=== PATIENT | female | born 1990 | race Caucasian/White ===

== ENCOUNTER → 2019-12-07 14:48 | Outpatient (BNVA) | payer BC, SELFPAY | PROVIDERS: PCP Hospitalist; Visit Provider Advanced Practice Midwife | DX: Z30.42 Encounter for surveillance of injectable contraceptive (principal) | CPT/HCPCS: 96372 ==

== ENCOUNTER 2020-01-10 15:00 | Outpatient (RCR) | payer BC, SELFPAY ==
--- NOTE | 2019-12-15 16:18 | MHC.PT.EP ---
[facility] [place] Office [place] Office [place] Office [address] Julio Dorman [address] [phone] F: [phone] F: [phone] F: [phone] F: [phone] Physical Therapy Plan of Care Date of Evaluation: 12/15/19 Date of Surgery: NA Diagnosis: Strain of rectus abdominis muscle Assessment: 29 year female referred for strain of abdominal muscles . Pt is 7.5 months post and present with diastasis recti. Pt also states she has mild uterine prolapse and cystocele. Pt has had 3 children. Her 2nd child is 20 month and 3rd is 7.5 months old. Per pt she has had diastasis recti after her first child (6 years back) and it got worse with her last 2 children. Examination reveals 0/10 pain at rest and 9/10 pain with lifting heavy weights, running, decreased muscle strength of rectus and transverse abdominis, 4 finger separation at 2 inches above belly button and 3 fingers separation at 2 fingers bellow belly button and demonstrated mild deviation in posture. Pt is independent with all BADLS but needs help with IADLS requiring her to lift heavy weights. 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 She is a good candidate for PT based on age, goals, physical impairments and functional limitations. She would benefit from lumbar stabs, abdominal strengthening, B LE strengthening and functional training. Frequency and Duration: The patient will be seen 2/week for 6 weeks Short Term Goals: 1. Pt will have 50% decrease in 2 weeks. 2. Pt will have 2 finger separation below belly button and 3 finger above belly button in 3 weeks. Senior Care Goals: 1. Pt will be able to perform all ADLS without any pain in 5 weeks. 2. Pt will return to PLOF in 6 weeks Treatment Plan: Modalities to reduce pain, spasms and effusion. Manual therapy to restore motion and function. Therapeutic exercise to improve strength and flexibility. Neuromuscular re-education for posture and balance. Therapeutic activities to return to functional activities of daily living. Please sign and return to therapist. Thank you for your referral.
--- NOTE | 2020-02-20 08:49 | MHC.PT.DC ---
[facility] [place] Office [place] Office [place] Office [address] Julio Dorman [address] [phone] F: [phone] F: [phone] F: [phone] F: [phone] Physical Therapy Discharge Report Diagnosis: Strain of rectus abdominis muscle Date of Surgery: NA Date of Evaluation: 12/15/19 Date of Discharge: 02/20/20 Treatments to Date: 7 Cancellations to Date: 0 No Shows to Date: 1 Discharge Status: Improved Function Independent with HEP Discharge Summary: Pt was attending PT regularly and was getting better. However pt has not been able to attend PT over the last one month due to personal issues. Pt was therefore d/c from therapy and was advised to return to therapy when able. Electronically signed by: Lydia Genao DPT Please sign and return to therapist. Thank you for your referral.
== END 2020-02-20 08:50 | disposition other institution (70) ==
LOC: HO.PT 15:00
PROVIDERS: PCP Family Medicine; Visit Provider Hospitalist
DX: S39.011D Strain of muscle, fascia and tendon of abdomen, subsequent encounter (principal)
CPT/HCPCS: 97110; 97161

== ENCOUNTER → 2020-02-28 14:33 | Outpatient (BNVA) | payer BC, SELFPAY | PROVIDERS: PCP Family Medicine; Visit Provider Advanced Practice Midwife | DX: Z30.42 Encounter for surveillance of injectable contraceptive (principal) | CPT/HCPCS: 96372; J1050 ==

== ENCOUNTER 2020-11-12 10:17 | Outpatient (REF) | payer BC, SELFPAY ==
[2020-11-12 13:54] LABS: Hematocrit 40.9 % (37-47); Hemoglobin 13.4 g/dl (12.0-16.0); Mean Corpuscular HGB Conc 32.8 g/dl (31.0-35.0); Mean Corpuscular Hemoglobin 28.5 pg (27.0-33.0); Mean Platelet Volume 12.4 fL (9.4-12.3); Platelet Count 201 X10*3/uL (160-400); Red Cell Distribution Width 12.6 % (11.0-16.0); White Blood Count 6.7 X10*3/uL (4.8-10.8)
[2020-11-12 14:47] LABS: TSH reflex Free T4 1.27 uIU/mL (0.32-4.0)
[2020-11-12 14:53] LABS: Alanine Aminotransferase 13 U/L (0-31); Albumin Level 4.6 g/dL (3.5-5.0); Alkaline Phosphatase 53 U/L (39-117); Anion Gap 12 (12-20); Aspartate Amino Transferase 20 U/L (5-31); Bilirubin Total 0.8 mg/dL (0.0-1.0); Blood Urea Nitrogen 10 mg/dL (9-16); Calcium 9.3 mg/dL (8.4-10.2); Carbon Dioxide 25 mmol/L (22-29); Chloride 109 mmol/L (96-108); Estimated Glomerular Filt Rate > 60; Glucose Fasting 82 mg/dL (60-99); Potassium 4.1 mmol/L (3.3-5.1); Sodium 142 mmol/L (135-145)
== END 2020-11-12 10:18 | disposition home or self-care (01) ==
LOC: HO.WFDLDS 10:17
PROVIDERS: Visit Provider Hospitalist
DX: Z00.00 Encounter for general adult medical examination without abnormal findings (principal)
CPT/HCPCS: 36415; 80053; 84443; 85027

== ENCOUNTER 2020-11-23 12:48 | Outpatient (REF) | payer BC, SELFPAY ==
[2020-11-23 14:23] LABS: Anion Gap 12 (12-20); Blood Urea Nitrogen 9 mg/dL (9-16); Calcium 9.4 mg/dL (8.4-10.2); Carbon Dioxide 24 mmol/L (22-29); Chloride 107 mmol/L (96-108); Cholesterol 140 mg/dL; Estimated Glomerular Filt Rate > 60; Glucose Fasting 86 mg/dL (60-99); HDL Cholesterol 28 mg/dL; LDL Cholesterol Calculated 91 mg/dl; Sodium 139 mmol/L (135-145); Triglycerides 106 mg/dL
== END 2020-11-23 12:49 | disposition home or self-care (01) ==
LOC: HO.WFDLDS 12:48
PROVIDERS: Visit Provider Hospitalist
DX: Z00.00 Encounter for general adult medical examination without abnormal findings (principal)
CPT/HCPCS: 36415; 80048; 80061

== ENCOUNTER 2020-11-28 08:27 | Outpatient (REF) | payer BC, SELFPAY ==
[2020-11-28 10:54] LABS: Cholesterol 129 mg/dL; HDL Cholesterol 30 mg/dL; LDL Cholesterol Calculated 85 mg/dl; Triglycerides 72 mg/dL
== END 2020-11-28 08:28 | disposition home or self-care (01) ==
LOC: HO.WFDLDS 08:27
PROVIDERS: Visit Provider Hospitalist
DX: R79.89 Other specified abnormal findings of blood chemistry (principal)
CPT/HCPCS: 36415; 80061

== ENCOUNTER 2022-01-01 09:22 | Outpatient (REF) | payer BC, SELFPAY ==
[2022-01-01 11:35] LABS: Hematocrit 41.3 % (37.0-47.0); Hemoglobin 13.8 g/dl (12.0-16.0); Mean Corpuscular HGB Conc 33.4 g/dl (31.0-35.0); Mean Corpuscular Hemoglobin 28.8 pg (27.0-33.0); Mean Platelet Volume 11.5 fL (9.4-12.3); Platelet Count 224 X10*3/uL (160-400); Red Cell Distribution Width 12.4 % (11.0-16.0); White Blood Count 6.2 X10*3/uL (4.8-10.8)
[2022-01-01 12:50] LABS: Alanine Aminotransferase 6 U/L (0-31); Albumin Level 4.5 g/dL (3.5-5.0); Alkaline Phosphatase 45 U/L (39-117); Anion Gap 11 (12-20); Aspartate Amino Transferase 17 U/L (5-31); Bilirubin Total 0.6 mg/dL (0.0-1.0); Blood Urea Nitrogen 11 mg/dL (9-16); Calcium 8.9 mg/dL (8.4-10.2); Carbon Dioxide 28 mmol/L (22-29); Chloride 107 mmol/L (96-108); Cholesterol 152 mg/dL; Estimated Glomerular Filt Rate > 60; Glucose Fasting 77 mg/dL (60-99); Potassium 4.4 mmol/L (3.3-5.1); Sodium 142 mmol/L (135-145); TSH reflex Free T4 1.42 uIU/mL (0.32-4.0); Triglycerides 45 mg/dL
[2022-01-01 12:59] LABS: HDL Cholesterol 37 mg/dL; LDL Cholesterol Calculated 106 mg/dl
== END 2022-01-01 09:23 | disposition home or self-care (01) ==
LOC: HO.WFDLDS 09:22
PROVIDERS: Visit Provider Hospitalist
DX: Z00.00 Encounter for general adult medical examination without abnormal findings (principal)
CPT/HCPCS: 36415; 80053; 80061; 84443; 85027

== ENCOUNTER 2022-05-01 16:01 | Outpatient (REF) | payer BC, SELFPAY ==
[2022-05-02 12:37] LABS: Influenza A PCR NEGATIVE (Negative); Influenza B PCR NEGATIVE (Negative); Resp Syncy Virus RNA Qual PCR NEGATIVE (Negative); SARS COV2 PCR INHOUSE POSITIVE (Negative)
== END 2022-05-01 16:02 | disposition home or self-care (01) ==
LOC: HO.LAB 16:01
PROVIDERS: Visit Provider Nurse Practitioner Family
DX: R06.9 Unspecified abnormalities of breathing (principal); R09.89 Other specified symptoms and signs involving the circulatory and respiratory systems; Z20.822 Contact with and (suspected) exposure to COVID-19
CPT/HCPCS: 0241U

== ENCOUNTER 2022-10-08 09:21 | Outpatient (REF) | payer BC, SELFPAY ==
[2022-10-08 11:21] LABS: MANUAL DIFF FLAG NO
[2022-10-08 11:30] LABS: Basophils Percent Auto 0.5 % (0-2); Eosinophils Absolute Auto 0.2 X10*3/uL (0.0-0.4); Hematocrit 40.5 % (37.0-47.0); Hemoglobin 13.6 g/dl (12.0-16.0); Imm Gran Abs Auto 0.01 X10*3/uL (0.00-0.03); Imm Gran Pct Auto 0.2 % (0.0-0.4); Lymphocytes Absolute Auto 1.9 X10*3/uL (1.2-4.9); Lymphocytes Percent Auto 32.4 % (20-40); Mean Corpuscular HGB Conc 33.6 g/dl (31.0-35.0); Mean Corpuscular Hemoglobin 28.8 pg (27.0-33.0); Mean Corpuscular Volume 85.6 fL (80.0-98.0); Monocytes Absolute Auto 0.3 X10*3/uL (0.1-1.2); Monocytes Percent Auto 5.7 % (2-11); Neutrophils Absolute Auto 3.5 x10*3/uL (2.0-8.3); Neutrophils Percent Auto 58.2 % (45-73); Platelet Count 226 X10*3/uL (160-400); Red Blood Count 4.73 X10*6/uL (4.20-5.50); White Blood Count 5.9 X10*3/uL (4.8-10.8)
[2022-10-08 12:15] LABS: Vitamin B12 1494 pg/mL (200-900)
[2022-10-08 12:26] LABS: Alanine Aminotransferase 7 U/L (0-31); Albumin Level 4.4 g/dL (3.5-5.0); Alkaline Phosphatase 42 U/L (39-117); Anion Gap 11 (12-20); Aspartate Amino Transferase 16 U/L (5-31); Bilirubin Total 0.7 mg/dL (0.0-1.0); Blood Urea Nitrogen 12 mg/dL (9-16); Calcium 9.1 mg/dL (8.4-10.2); Carbon Dioxide 28 mmol/L (22-29); Chloride 106 mmol/L (96-108); Cholesterol 146 mg/dL; Estimated Glomerular Filt Rate > 60; Glucose Random 74 mg/dL (60-115); HDL Cholesterol 37 mg/dL; Iron 96 mcg/dL (30-160); LDL Cholesterol Calculated 96 mg/dl; Percent Iron Saturation 35 % (15-50); Potassium 3.8 mmol/L (3.3-5.1); Sodium 141 mmol/L (135-145); Total Iron Binding Capacity 276 mcg/dL (228-428); Total Protein 7.3 g/dL (6.5-8.0); Triglycerides 66 mg/dL; Unsaturated Iron Binding 180 ug/dL
[2022-10-08 12:31] LABS: Ferritin 52 ng/mL (10-122); Free T4 (Free Thyroxine) 0.83 ng/dL (0.71-1.85); Insulin 6 uU/mL (2-29); Thyroid Stimulating Hormone 1.41 uIU/mL (0.32-4.0); Vitamin D 25-OH Total 64.3 ng/mL (>30)
[2022-10-08 12:42] LABS: Gamma Glutamyl Transpeptidase 15 U/L (7-33)
[2022-10-09 06:54] LABS: Triiodothyronine T3 Free 3.4 pg/mL (2.3-4.2)
[2022-10-09 06:58] LABS: DHEA Sulfate 246 mcg/dL (19-237); Follicle Stimulating Hormone 4.6 mIU/mL; Lutenizing Hormone 6.3 mIU/mL
[2022-10-09 09:33] LABS: Thyroglobulin Antibodies <1 IU/mL (< or = 1); Thyroid Peroxidase Antibodies <1 IU/mL (<9)
[2022-10-10 08:08] LABS: Calcium (PTHI) 8.9 mg/dL (8.6-10.2); PTHI 27 pg/mL (16-77)
[2022-10-13 10:48] LABS: Methylmalonic Acid 110 nmol/L (87-318)
[2022-10-13 13:48] LABS: Triiodothyronine T3 Reverse 11 ng/dL (8-25)
[2022-10-13 15:33] LABS: Testosterone, Free 4.7 pg/mL (0.1-6.4); Testosterone, Total 33 ng/dL (2-45)
[2022-10-14 10:14] LABS: CRP High Sensitivity 0.9 mg/L
[2022-10-14 21:49] LABS: Progesterone <0.1 ng/mL
[2022-10-17 00:39] LABS: Dihydrotestosterone 11 ng/dL (< OR = 20)
[2022-10-17 21:54] LABS: Estradiol Free 2.74 pg/mL; Estradiol, Ultrasensitive 122 pg/mL
== END 2022-10-08 09:22 | disposition home or self-care (01) ==
LOC: HO.WFDLDS 09:21
PROVIDERS: Visit Provider Internal Medicine
DX: Z13.89 Encounter for screening for other disorder (principal)
CPT/HCPCS: 36415; 80053; 80061; 82306; 82607; 82627; 82642; 82670; 82681; 82728; 82977; 83001; 83002; 83525; 83540; 83921; 83970; 84144; 84402; 84403; 84439; 84443; 84481; 84482; 85025; 86141; 86376; 86800

== ENCOUNTER 2022-10-11 09:35 | Outpatient (REF) | payer BC, SELFPAY ==
[2022-10-13 18:18] LABS: Homocysteine 5.1 umol/L (<10.4)
== END 2022-10-11 09:36 | disposition home or self-care (01) ==
LOC: HO.LAB 09:35
PROVIDERS: Visit Provider Internal Medicine
DX: Z13.89 Encounter for screening for other disorder (principal)
CPT/HCPCS: 36415; 83090

== ENCOUNTER 2023-03-20 14:40 | Outpatient (AMB) | payer BC, SELFPAY ==
--- NOTE | 2023-03-20 14:46 | MHC.PC.OV ---
Vital Signs 03/20/23 14:48 Height 5 ft 2 in Weight 154 lb BMI 28.2 BP 122/70 Blood Pressure Location Rt brachial Pulse 78 Pulse Oximetry (%) 98 Intake Visit Reasons: Transfer of care, req. 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 UTD on routine pap. Not on control had vastectomy Vision - no corrective lenses. Over due for eye exam, no acute problems. No issues with skin Mood -- BED Active w/ nutrition, counseling and psychiatry. Needs referral for [facility] placed with a start date 03/19/2023. See that she has never been hospitalized for binge eating disorder. Denies any bingeing or purging. Denies use/abuse of laxatives. Denies any SI or HI. Taking fluoxetine. Has gone between 20-40 mg in her dosing. She is currently at 40 mg. Continues to have some desire to binge. Labs done 09/2022 done by functional medicine reviewed. SPECIALIST SHE IS ACTIVE WITH: Functional Medicine Doctor at [facility] in [place] [facility] PENDING SALE TO [facility] Medical History (Updated 03/20/23 @ 16:33 by CHRISTAL Gongora) History of recurrent ear infection Surgical History (Updated 03/20/23 @ 15:32 by CHRISTAL Gongora) S/P abdominoplasty H/O section Family History (Updated 03/20/23 @ 15:09 by Verona L O'Aristides, EQUITY RESEARCH ANALYST-BC) Mother No problems noted. Father No problems noted. Maternal Grandmother No problems noted. Paternal Grandfather No problems noted. Social History Housing: Apartment Patient Tobacco Use Status: Former Tobacco user Tobacco use type: Cigarette e-Cigarette/Vaping Use: Never Used Second Hand Smoke Exposure: No service: No Current occupational status: employed Questionnaire PHQ-9 Over the last 2 weeks, how often have you been bothered by any of the following problems? 1. Little interest or pleasure in doing things: not at all 2. Feeling down, depressed, or hopeless: not at all 3. Trouble falling or staying asleep, or sleeping too much: not at all 4. Feeling tired or having little energy: not at all 5. Poor appetite or overeating: not at all 6. Feeling bad about yourself - or that you are a failure or have let yourself or your family down: not at all 7. Trouble concentrating on things, such as reading the newspaper or watching television: several days 8. Moving or speaking so slowly that other people could have noticed. Or the opposite - being so fidgety or restless that you have been moving around a lot more than usual: not at all 9. Thoughts that you would be better off or of hurting yourself in some way: not at all Total score: 1 Depression Screening Interpretation: Negative Depression Screening Done: Yes 19869 - PHQ-9 Billing: Yes Source: Developed by Drs. Tree Sandra, Margret Santos, Mando Benítez and colleagues, with an educational pinky from [employer]. Thrive Questionnaire Date Thrive assessed: 04/09/22 I am a: Patient What is your living situation today?: I have a steady place to live Within the past 12 months, did the food you bought not last and you didn't have the money to get more?: Never true Within the past 12 months, did you worry whether your food would run out before you got money to buy more?: Never true Do you have trouble paying for medicines?: No Do you have trouble getting transportation to medical appointments?: No Do you have trouble paying your heating and electricity bill?: No Do you have trouble taking care of your child, family member or friend?: No Do you have trouble with day-to-day activities such as bathing, preparing meals, shopping, managing finances, etc.?: No Are you currently unemployed and looking for a job?: No Are you interested in more education?: No THRIVE Score: 0 AUDIT C Alcohol Use Questionnaire (AUDIT-C) 1. How often do you have a drink containing alcohol?: Monthly or less 2. How many drinks containing alcohol do you have on a typical day when you are drinking?: 1 or 2 3. How often do you have six or more drinks on one occasion?: Never Total Score: 1 Score Reviewed/Action Taken: Yes DEN-7 AMB Questionnaire DEN-7 Date DEN - 7 assessed: 04/09/22 Feeling nervous, anxious, or on edge: 2 = More than half the days Not being able to stop or control worryin = More than half the days Worrying too much about different things: 2 = More than half the days Trouble relaxin = More than half the days Being so restless that it is hard to sit still: 2 = More than half the days Becoming easily annoyed or irritable: 2 = More than half the days Feeling afraid as if something awful might happen: 2 = More than half the days Total DEN-7 score (0-4 normal; 5-9 mild; 10-14 moderate; 15-21 severe): 14 Source: Developed by Drs. Tree Sandra, Margret Santos, Mando Benítez and colleagues, with an educational pinky from [employer]. DEN-7 Assessment Billing DEN-7 Assessment Tool: DEN-7 Assessment 18094 Review of Systems Const Details: Constitutional: Denies fever. Skin: Denies rash. Eye: Denies eye pain. ENMT: Denies sore throat and nasal congestion. Respiratory: Denies shortness of breath and cough. Gastrointestinal: Denies nausea, vomiting or abdominal pain. Cardiovascular: Denies chest pain and syncope. Genitourinary: Denies dysuria. Musculoskeletal: Denies back pain and extremity pain. Neurologic: Denies headaches, confusion, and weakness. Psychiatric: Denies suicidal thoughts and substance abuse. Allergy/ Immunologic: Denies impaired immunity. Physical exam (Primary Care) Vital Signs: Last Vital Signs Pulse 78 03/20/23 14:48 BP 122/70 03/20/23 14:48 Pulse Ox 98 03/20/23 14:48 BMI result Body Mass Index 28.2 Tobacco/Smoking Status: Tobacco use Status Tobacco use date assessed 04/09/22 03/20/23 14:46 Patient Tobacco Use Status Former Tobacco user 03/20/23 14:46 Tobacco use type Cigarette 03/20/23 14:46 e-Cigarette/Vaping Use Never Used 03/20/23 14:46 PHQ-9: PHQ-9 Score PHQ-9: Total score 1 03/20/23 15:04 Depression Screening Interpretation: Negative Thrive Assessment: Date of Thrive Assessment Date Thrive assessed 04/09/22 03/20/23 14:46 Const Other: General: Well developed, well nourished, in no acute distress. Appears stated age. Head: Normocephalic, atraumatic. Eyes: Pupils are equal, round and reactive to light and accommodation. Conjunctivae are clear. Vision grossly normal. Ears: TMs clear AU, EACS WNL Nose: Patent, without discharge. Mouth: There are no ulcers or lesions noted. No inflammation, no post nasal drip, no plaques nor exudates. Neck: Supple, no adenopathy or thyromegaly. Lungs: Clear to auscultation bilaterally. No rales, rhonchi or wheeze noted. Good air flow in all posey. Heart: Regular rate and rhythm. No murmurs, click, rubs or gallops are noted. Abdomen: Bowel sounds present in all quadrants. The abdomen is soft, nontender, with no masses or organomegaly noted. No hernias are noted. Musculoskeletal: Joints are nontender, without swelling, redness, or effusions. Range of motion is observed to be normal. Pulses: Peripheral pulses are equal and palpable bilaterally. Extremities: No clubbing, cyanosis nor edema is noted. Neurologic: Gait and station normal. Cranial Nerves 2-12 intact. Motor strength grossly symmetrical and intact. No sensory loss. Balance normal. Skin: No rashes, ulcers, or lesions noted. Turgor is good. Skin color is good. Hair and nails are without abnormalities. Psych: Normal eye contact, affect and mood appropriate, and normal interactions. Patient is alert and appropriate to context. Extremities: No clubbing, cyanosis or edema. Assessment and Plan Assessment & Plan (1) S/P abdominoplasty: Comment: 3 hernia repairs; done by plastics out in [place] 2020 Code(s): Z98.890 - Other specified postprocedural states (2) Binge eating disorder: Code(s): F50.81 - Binge eating disorder (3) Routine physical examination: Code(s): Z00.00 - Encounter for general adult medical examination without abnormal findings (4) Anxiety and depression: Code(s): F41.9 - Anxiety disorder, unspecified; F32.A - Depression, unspecified (5) Family history of skin cancer: Code(s): Z80.8 - Family history of malignant neoplasm of other organs or systems Plan: Discussed binge eating disorder. 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 Reports that primary care was prescribing her fluoxetine. I have sent in refills for the fluoxetine 40 mg. Discussed augmenting with Wellbutrin. Reviewed that she does not history of anorexia. Therefore we will start Wellbutrin XL 150 mg daily. I will see her back in 6 weeks' time to review the benefit and check her weight. She should continue care with her counselor telephone plant power operator I placed a referral that she is asked for Guidelines based on age according to the [place] preventative task force reviewed Declined any additional labs Orders: Referrals Emergency Room Registered Nurse Nutrition Referral F50.81 - Binge eating disorder Medications: New bupropion HCl (Wellbutrin XL) 150 mg PO QAM 30 days 30 tabs 1RF Changed From fluoxetine Be advised that pt will be taking between 40 and 20 mg 40 in the winter due to sad and then as sad is reduced she will reduce dose to 30 or 20 mg as able which I believe over time will work for her. 40 mg (2 x 20 mg) PO DAILY 3 months 180 caps 2RF F32.A - Depression, unspecified, F41.9 - Anxiety disorder, unspecified To fluoxetine 40 mg PO DAILY 3 months 90 caps 2RF F32.A - Depression, unspecified, F41.9 - Anxiety disorder, unspecified Coding Level of Care Code Est Pt Prev Care [id number]) Diagnoses S/P abdominoplasty Z98.890 Binge eating disorder F50.81 Routine physical examination Z00.00 Anxiety and depression F41.9; F32.A Family history of skin cancer Z80.8 Additional Codes DEN-7 Assessment Billing - DEN-7 Assessment Tool: DEN-7 Assessment 97849 ([id number])
[2023-03-20 14:48] VITALS: BP 122/70; PULSE 78; O2SAT 98; BMI 28.2
== END 2023-03-20 15:27 | disposition home or self-care (01) ==
PROVIDERS: PCP Hospitalist; Visit Provider Nurse Practitioner Family
DX: Z00.00 Encounter for general adult medical examination without abnormal findings (principal); Z98.890 Other specified postprocedural states; F50.81 Binge eating disorder; F41.9 Anxiety disorder, unspecified; F32.A Depression, unspecified; Z80.8 Family history of malignant neoplasm of other organs or systems
CPT/HCPCS: 99395

== ENCOUNTER 2023-12-16 21:41 | Emergency (ER) | payer BC, SELFPAY ==
--- NOTE | ~2023-12-16 | CT_ITS ---
EXAMINATION: CT ABDOMEN AND PELVIS WITHOUT CONTRAST CLINICAL INFORMATION: Right flank pain. COMPARISON: None available. TECHNIQUE: Multidetector volumetric imaging was performed from the superior aspect of the liver through the pubic symphysis. Sagittal and coronal reformatted images were obtained on the technologist's workstation. This CT examination was performed using dose optimization techniques as appropriate, variously including the following: *Automated exposure control *Adjustment of mA and/or kV according to patient size (this includes techniques or standardized protocols for targeted exams where dose is matched to indication/reason for exam; i.e. extremities or head) *Use of iterative reconstruction technique DLP: 581 mGy-cm FINDINGS: LUNG BASES: The visualized lung bases are unremarkable. LIVER, GALLBLADDER, AND BILIARY TREE: There is a subcentimeter hypodensity at the dome liver likely a small cyst. There is no intrahepatic biliary duct dilatation. The gallbladder is unremarkable with no evidence of radiopaque gallstones, gallbladder wall thickening, or obvious pericholecystic inflammatory changes. PANCREAS: Unremarkable. SPLEEN: Unremarkable. ADRENAL GLANDS: Unremarkable. KIDNEYS AND URETERS: The kidneys are normal in size, shape, and attenuation. Nonobstructing 2 mm calculus lower pole right kidney. There is no hydronephrosis BLADDER: Unremarkable. GASTROINTESTINAL TRACT: The small and large bowel are unremarkable. The appendix is unremarkable. ABDOMINAL WALL: No significant hernia is appreciated. LYMPH NODES: Normal. VASCULAR: Unremarkable. PELVIC VISCERA: Unremarkable. OSSEOUS STRUCTURES: There is bilateral sacroiliac subchondral sclerosis. CT/CT abdomen pelvis wo IV con IMPRESSION: 1. No CT evidence of acute intra-abdominal process to explain patient's pain symptoms. 2. Nonobstructing 2 mm calculus lower pole right kidney. Fleischner guidelines were followed. Electronically signed by: Kenyon Owusu MD 12/17/2023 02:01 AM EDT
[2023-12-16 22:01] VITALS: BP 133/98; PULSE 87; RESP 18; TEMP 36.8; O2SAT 99; BMI 29.3
[2023-12-16 22:14] LABS: MANUAL DIFF FLAG NO
[2023-12-16 22:16] LABS: Basophils Percent Auto 0.3 % (0-2); Eosinophils Absolute Auto 0.3 X10*3/uL (0.0-0.4); Hematocrit 38.1 % (37.0-47.0); Hemoglobin 13.5 g/dl (12.0-16.0); Imm Gran Abs Auto 0.03 X10*3/uL (0.00-0.03); Imm Gran Pct Auto 0.3 % (0.0-0.4); Lymphocytes Absolute Auto 3.6 X10*3/uL (1.2-4.9); Lymphocytes Percent Auto 35.3 % (20-40); Mean Corpuscular HGB Conc 35.4 g/dl (31.0-35.0); Mean Corpuscular Hemoglobin 29.9 pg (27.0-33.0); Mean Corpuscular Volume 84.3 fL (80.0-98.0); Mean Platelet Volume 10.4 fL (9.4-12.3); Monocytes Absolute Auto 0.6 X10*3/uL (0.1-1.2); Monocytes Percent Auto 5.9 % (2-11); Neutrophils Absolute Auto 5.6 x10*3/uL (2.0-8.3); Neutrophils Percent Auto 55.2 % (45-73); Platelet Count 227 X10*3/uL (160-400); Red Blood Count 4.52 X10*6/uL (4.20-5.50); Red Cell Distribution Width 12.1 % (11.0-16.0); White Blood Count 10.1 X10*3/uL (4.8-10.8)
[2023-12-16 22:31] LABS: Alanine Aminotransferase 32 U/L (0-31); Albumin Level 4.4 g/dL (3.5-5.0); Alkaline Phosphatase 53 U/L (39-117); Anion Gap 13 (12-20); Aspartate Amino Transferase 38 U/L (5-31); Bilirubin Total 0.4 mg/dL (0.0-1.0); Blood Urea Nitrogen 11 mg/dL (9-16); Calcium 9.8 mg/dL (8.4-10.2); Carbon Dioxide 28 mmol/L (22-29); Chloride 105 mmol/L (96-108); Creatinine Clr Calc Pharmacy 102.7; Estimated Glomerular Filt Rate > 60; Glucose Random 86 mg/dL (60-115); Potassium 3.7 mmol/L (3.3-5.1); Sodium 142 mmol/L (135-145); Total Protein 7.3 g/dL (6.5-8.0)
[2023-12-17 00:02] VITALS: BP 122/86; PULSE 75; RESP 16; TEMP 36.7; O2SAT 96
[2023-12-17 00:12] LABS: Appearance Urine Clear; Color Urine Dark Yellow; Glucose Urine UA Negative (Negative); Leukocyte Esterase Urine Negative (Negative); Nitrite Urine Negative (Negative); Specific Gravity - Urine 1.015 (1.005-1.025); Urine Blood Negative (Negative); Urine Ketones Negative (Negative); Urine Protein Negative (Neg-Trace)
[2023-12-17 00:13] LABS: UPreg QC Valid YES; Urine Pregnancy NEGATIVE (NEGATIVE)
--- NOTE | 2023-12-17 00:13 | PC.NURSE ---
pt ambulated with a steady gait from waiting room. pt a&ox4, vss, respirations even and unlabored. pt reports right sided low back/flank pain x1 week with inspiration. pt reports increasing abdominal bloating over past 2-3 days with pain radiating to RLQ. bowel sounds normal x4 quadrants, no pain on abdominal palpation. pt reports increased pain with movement, laying supine, and when bearing down.
--- NOTE | 2023-12-17 00:40 | ED.ABDPAIN ---
HPI - Abdominal Pain General Chief Complaint: Abdominal Pain Stated Complaint: rt back flank pain Time Seen by Provider: 12/17/23 00:34 History of Present Illness ED Provider: Haroon HPI narrative: 33-year-old female presenting for right flank pain. Patient states that she has been experiencing 1 week of worsening right flank pain. She states that she is not desiccated that she has been taking care of and lifting up more frequently lately as her broke his foot she is not sure whether this is contributing to her back pain however she presents today because the pain has become more severe. Her pain is worse with movement and when she puts pressure on her lower back. She denies urinary/stool incontinence/retention and has no saddle anesthesia. She denies dysuria, hematuria, fevers, chills, abdominal pain, chest pain, shortness of breath, nausea, vomiting. Related Data Home Medications ?Medication ?Instructions ?Recorded ?Confirmed omega-3 fatty acids 1,000 mg 1,000 mg PO DAILY 11/12/20 05/01/22 capsule (Fish Oil Concentrate) Lactobacillus combo no.23 14 cell PO 03/20/23 03/20/23 billion cell capsule (Omar Probiotic) multivitamin 1 tab PO DAILY 03/20/23 03/20/23 Previous Rx's ?Medication ?Instructions ?Recorded fluoxetine 40 mg capsule 40 mg PO DAILY #90 caps 12/16/23 Allergies Allergy/AdvReac Type Severity Reaction Status Date / Time No Known Allergies Allergy Verified 12/16/23 22:01 [No Known Allergies*] Review of Systems Review of Systems Patient endorses right-sided lower back pain Yes all other systems are reviewed and are negative PMFSH Past Medical History Medical History (Updated 12/17/23 @ 02:07 by Petar Patiño MD) History of recurrent ear infection Surgical History (Updated 03/20/23 @ 15:32 by CHRISTAL Gongora) S/P abdominoplasty H/O section Family History Family History (Updated 03/20/23 @ 15:09 by CHRISTAL Gongora) Mother No problems noted. Father No problems noted. Maternal Grandmother No problems noted. Paternal Grandfather No problems noted. Social History Social History Housing: Apartment Patient Tobacco Use Status: Former Tobacco user Tobacco use type: Cigarette e-Cigarette/Vaping Use: Never Used Second Hand Smoke Exposure: No Use of substances other than those prescribed or required for medical reasons: No Advance Directives: No Advance Directives Information Provided: Yes Do you have a plan to hurt others: No Plan Patient : No service: No Current occupational status: employed Physical Exam ED Vital Signs: Vital Signs - 24 hr 12/16/23 22:01 12/17/23 00:02 12/17/23 01:26 Temperature 98.2 F 98.0 F 98.1 F Pulse Rate 87 75 60 Respiratory Rate 18 16 16 Blood Pressure 133/98 H 122/86 113/77 Pulse Oximetry 99 96 95 Oxygen Delivery Method Room Air Room Air Room Air BMI result Body Mass Index 29.3 Well-appearing female No external signs of trauma Lungs clear to auscultation bilaterally; normal S1-S2 regular rate and rhythm Abdomen is soft nontender nondistended No midline spine tenderness; no right or left-sided CVA tenderness Negative straight leg test Medical Decision Making Medical Decision Making MDM Narrative: This is a 33-year-old female presenting with right lower back pain. I am concerned for the following; nephrolithiasis, back strain/sprain, herniated disc -no concern for acute cord given reassuring physical exam HPI -labs and imaging studies ordered -analgesics ordered -urine clean -I noticed small right-sided calculi on patient's CT imaging and radiology interpretation measures it at 2 mm and states it is nonobstructing -on reassessment patient reports improvement in symptoms -I gave patient home care instructions and return precautions and outpatient follow up instructions Differential Diagnosis Differential Diagnoses: The differential diagnosis associated with the presentation includes Nephrolithiasis, back strain/sprain, herniated disc Lab Data 12/16/23 22:09 12/16/23 22:09 Labs: Lab Results 12/16/23 12/17/23 Range/Units 22:09 00:05 WBC 10.1 (4.8-10.8) X10*3/uL RBC 4.52 (4.20-5.50) X10*6/uL Hgb 13.5 (12.0-16.0) g/dl Hct 38.1 (37.0-47.0) % MCV 84.3 (80.0-98.0) fL MCH 29.9 (27.0-33.0) pg MCHC 35.4 H (31.0-35.0) g/dl RDW 12.1 (11.0-16.0) % Plt Count 227 (160-400) X10*3/uL MPV 10.4 (9.4-12.3) fL Immature Gran % (Auto) 0.3 (0.0-0.4) % Neut % (Auto) 55.2 (45-73) % Lymph % (Auto) 35.3 (20-40) % [place] % (Auto) 5.9 (2-11) % Eos % (Auto) 3.0 (0-4) % Baso % (Auto) 0.3 (0-2) % Lymph # (Auto) 3.6 (1.2-4.9) X10*3/uL [place]ill # (Auto) 0.6 (0.1-1.2) X10*3/uL Eos # (Auto) 0.3 (0.0-0.4) X10*3/uL Baso # (Auto) 0.0 (0.0-0.2) X10*3/uL Abs Immat Gran (auto) 0.03 (0.00-0.03) X10*3/uL Absolute Neuts (auto) 5.6 (2.0-8.3) x10*3/uL Absolute Nucleated RBC 0.000 (0.0-0.012) X10*3/uL Nucleated RBC % (auto) 0.0 (0.0-0.2) /100WBC Sodium 142 (135-145) mmol/L Potassium 3.7 (3.3-5.1) mmol/L Chloride 105 (96-108) mmol/L Carbon Dioxide 28 (22-29) mmol/L Anion Gap 13 (12-20) BUN 11 (9-16) mg/dL Creatinine 0.72 (0.5-1.4) mg/dL Estim Creat Clear Calc 102.7 Estimated GFR > 60 Random Glucose 86 (60-115) mg/dL Calcium 9.8 D (8.4-10.2) mg/dL Total Bilirubin 0.4 (0.0-1.0) mg/dL AST 38 H (5-31) U/L ALT 32 H (0-31) U/L Alkaline Phosphatase 53 (39-117) U/L Total Protein 7.3 (6.5-8.0) g/dL Albumin 4.4 (3.5-5.0) g/dL Urine Color Dark Yellow Urine Appearance Clear Urine pH 6.0 (5.0-9.0) Ur Specific [place] 1.015 (1.005-1.025) Urine Protein Negative (Neg-Trace) mg/dL Urine Glucose (UA) Negative (Negative) mg/dL Urine Ketones Negative (Negative) mg/dL Urine Blood Negative (Negative) Urine Nitrite Negative (Negative) Ur Leukocyte Esterase Negative (Negative) Urine Test NEGATIVE (NEGATIVE) Medications Administered Discontinued Medications Generic Name Dose Route Start Last Admin Trade Name Felicia PRN Reason Stop Dose Admin Acetaminophen 650 mg 12/17/23 00:38 12/17/23 00:47 Acetaminophen 325 Mg Tablet PO 12/17/23 00:39 650 mg ONCE ONE Administration Ketorolac Tromethamine 15 mg 12/17/23 00:38 12/17/23 00:47 Ketorolac Tromethamine 15 Mg/Ml Vial IVPUSH 12/17/23 00:39 15 mg ONCE ONE Administration Lidocaine 1 patch 12/17/23 00:38 12/17/23 00:48 Lidocaine 4 % Patch Adh..Patch TRANSDERMA 12/17/23 00:39 1 patch ONCE ONE Administration Protocol Discharge Plan Discharge Clinical Impression: Kidney stone Patient Disposition: Home, Self-Care Additional Instructions: You can take Tylenol and ibuprofen for pain management Make sure to hydrate adequately throughout the day Please follow up with your primary care provider in the next week for reassessment. Please schedule an appointment with the urologist listed in the discharge paperwork If symptoms worsen or you develop fevers, chills, nausea, vomiting or any other concerning symptoms please return to the emergency department Prescriptions: No Action fluoxetine 40 mg capsule 40 mg PO DAILY Qty: 90 0RF Rx Instructions: need to schedule follow up with PCP omega-3 fatty acids [Fish Oil Concentrate] 1,000 mg capsule 1,000 mg PO DAILY multivitamin Tablet 1 tab PO DAILY Omar Probiotic 14 billion cell capsule PO Referrals: Deonte Valladares MD [Physician] - Print Language: South Korean
[2023-12-17] MEDS: Ketorolac Tromethamine 15 MG/ML VIAL IVPUSH (00:47)
[2023-12-17] MEDS: Acetaminophen 325 MG TABLET 650 MG PO (00:47)
[2023-12-17] MEDS: Lidocaine 4 % Patch ADH..PATCH 1 PATCH TRANSDERMA (00:48)
--- NOTE | 2023-12-17 00:53 | PC.NURSE ---
20g placed in left forearm. pt medicated per apr.
[2023-12-17 01:26] VITALS: BP 113/77; PULSE 60; RESP 16; TEMP 36.7; O2SAT 95
[2023-12-17 02:36] VITALS: BP 113/77; PULSE 60; RESP 16; TEMP 36.7; O2SAT 95
== END 2023-12-17 02:36 | disposition home or self-care (01) ==
PROVIDERS: Emergency Provider Student in an Organized Health Care Education/Training Program; PCP Nurse Practitioner Family
DX: N20.0 Calculus of kidney (principal); R10.9 Unspecified abdominal pain
CPT/HCPCS: 36415; 74176; 80053; 81003; 81025; 85025; 96374; 99284; 99285; J1885

== ENCOUNTER 2023-12-29 12:12 | Outpatient (AMB) | payer BC, SELFPAY ==
--- NOTE | 2023-12-29 12:19 | A.OFFPC_ITS ---
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 Required: No Allergies No Known Allergies [No Known Allergies*] Allergy (Verified 12/29/23 12:33) Medication List - Last Reconciled 12/29/23 by ANGEL Gongora-TUAN fluoxetine 40 mg PO DAILY Lactobacillus combo no.23 (Omar Probiotic) cells PO multivitamin 1 tab PO DAILY omega-3 fatty acids (Fish Oil Concentrate) 1,000 mg PO DAILY Tobacco use date assessed: 04/09/22 HPI HPI Comments History of Present Illness Details 33-year-old female with binge eating dis order, major depressive disorder, generalized anxiety disorder, family hx of skin ca, recurrent ear infections, kidney stone s/p abdominoplasty 3 hernia repairs; done by plastics out in [place] 2020, s/p c section Social: and lives at home with her 3 children , 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 She was seen at [facility] room [id number] for complaints of right back pain. It was noted that she had a 2 mm nonobstructing renal stone. She was discharged home with supportive care and advised to follow up with Urology. She has never had a kidney stone before. At the current time she denies any pain and reports normal elimination. She has an initial appointment with Urology scheduled later this month. There were [address] incidental findings [address] the CT scan that she would like to discuss today LIVER, GALLBLADDER, AND BILIARY TREE: There is a subcentimeter hypodensity at the dome liver likely a small cyst. There is no intrahepatic biliary duct dilatation. The gallbladder is unremarkable with no evidence of radiopaque gallstones, gallbladder wall thickening, or obvious pericholecystic inflammatory changes. OSSEOUS STRUCTURES: There is bilateral sacroiliac subchondral sclerosis. In addition her LFTs were mildly increased. In regards to the liver lesion she denies any abdominal pain. She denies any family history of liver disease. She denies EtOH use other than social and infrequent. In regards to the SI subchondral sclerosis she does report a history of chronic back pain however this is more mid to upper back. Although she does have some pain in her hips and pelvis from time to time. Denies any overt injury. She has completed physical therapy without improvement. I asked her about supplements she reports that she is taking a multivitamin, occasionally a probiotic, biotin hair skin and nails supplement and occasional use of omega-3. She also has a new complaint today of right ear pain which started 4 days ago. Describes pain as throbbing, sore, can feel pulse She was exposed to a child who had rhino virus. While she did not develop any of the rhino virus symptoms she did develop the right ear pain which has worsened over time. She does have a history of recurrent ear infections. She placed a Q-tip into the ear and noticed green discharge. She has not trialed any at home treatments. In other regards, to follow up on her binge eating disorder and mood. The Wellbutrin that I prescribed for her made her agitated. This was stopped and she was trialed on Vyvanse which seem to make her focus to intense what she did not like. The pharmacy ended up running out of the medication and she stopped. Her current medication is fluoxetine which is helping well with her mood and binge eating. She remains active with a counselor, prescriber and mechanical assembly. Finally just wants to make mention that she is working with a massage therapist for right rotator pain. She was having improvement with the therapy however it is not completely resolved as of this time. She will let me know if further intervention is needed. Exam Awake alert oriented, no acute distress Scleras nonicteric Mucous membranes moist Left TM intact and erythematous, right TM with rupture with purulent drainage in the EAC, has pain with external manipulation, no mastoid tenderness no pre or post auricular adenopathy Regular rate and rhythm No CVAT bilat Abdomen is soft, no tenderness, no hepatomegaly, does report a funny sensation with deep suprapubic palpation but without rebound or peritoneal signs She has normal full range of motion, normal strength of bilateral lower extremi ties. She has no paraspinal or spinal tenderness on exam today. Plan Follow up with Urology as scheduled. Be sure to liberally hydrate. Check an limited ultrasound of the abdomen to evaluate the lesion noted on the CT scan of the liver. Repeat LFTs and include a hepatitis profile. Depending on the findings may need to refer to gastroenterology versus check some additional labs. Treat otitis with Augmentin. Refer to the spine spent daughter at [facility] for the SI findings on the CT scan. Let me know if the right shoulder needs any further interventions I would be happy to place a referral or order imaging Return to the office in February for complete physical exam, sooner as needed This note is constructed using voice recognition software. While every effort has been made to ensure accuracy in milk powder grinder, still errors may have been included Sometimes, these errors may affect the content or meaning of the given sentence . Total time spent caring for the patient today was 40 minutes. This includes time spent before the visit reviewing the chart, time spent during the visit, and time spent after the visit on documentation [facility] Medical History (Updated 12/29/23 @ 14:06 by ANGEL Gongora-TUAN) History of recurrent ear infection Surgical History (Updated 03/20/23 @ 15:32 by CHRISTAL Gongora) S/P abdominoplasty H/O section Family History (Updated 03/20/23 @ 15:09 by ANGEL Gongora-TUAN) Mother No problems noted. Father No problems noted. Maternal Grandmother No problems noted. Paternal Grandfather No problems noted. Social History Housing: Apartment Patient Tobacco Use Status: Former Tobacco user Tobacco use type: Cigarette e-Cigarette/Vaping Use: Never Used Second Hand Smoke Exposure: No service: No Current occupational status: employed Questionnaire PHQ-9 Over the last 2 weeks, how often have you been bothered by any of the following problems? 1. Little interest or pleasure in doing things: not at all 2. Feeling down, depressed, or hopeless: not at all 3. Trouble falling or staying asleep, or sleeping too much: not at all 4. Feeling tired or having little energy: not at all 5. Poor appetite or overeating: not at all 6. Feeling bad about yourself - or that you are a failure or have let yourself or your family down: not at all 7. Trouble concentrating on things, such as reading the newspaper or watching television: not at all 8. Moving or speaking so slowly that other people could have noticed. Or the opposite - being so fidgety or restless that you have been moving around a lot more than usual: not at all 9. Thoughts that you would be better off or of hurting yourself in some way: not at all Total score: 0 26316 - PHQ-9 Billing: Yes Source: Developed by Drs. Tree Sandra, Margret Santos, Mando Benítez and colleagues, with an educational pinky from [employer]. Thrive Questionnaire Date Thrive assessed: 12/29/23 I am a: Patient What is your living situation today?: I have a steady place to live Within the past 12 months, did the food you bought not last and you didn't have the money to get more?: Never true Within the past 12 months, did you worry whether your food would run out before you got money to buy more?: Never true Do you have trouble paying for medicines?: No Do you have trouble getting transportation to medical appointments?: No Do you have trouble paying your heating and electricity bill?: No Do you have trouble taking care of your child, family member or friend?: No Do you have trouble with day-to-day activities such as bathing, preparing meals, shopping, managing finances, etc.?: No Are you currently unemployed and looking for a job?: No Are you interested in more education?: No Please select the resources that you would like help with: None Currently or been in a relationship where the following occur: No concerns reported THRIVE Score: 0 AUDIT C Alcohol Use Questionnaire (AUDIT-C) 1. How often do you have a drink containing alcohol?: Monthly or less 2. How many drinks containing alcohol do you have on a typical day when you are drinking?: 1 or 2 3. How often do you have six or more drinks on one occasion?: Never Total Score: 1 DEN-7 AMB Questionnaire DEN-7 Date DEN - 7 assessed: 12/29/23 Feeling nervous, anxious, or on edge: 1 = Several days Not being able to stop or control worryin = Several days Worrying too much about different things: 1 = Several days Trouble relaxin = Several days Being so restless that it is hard to sit still: 1 = Several days Becoming easily annoyed or irritable: 1 = Several days Feeling afraid as if something awful might happen: 1 = Several days Total DEN-7 score (0-4 normal; 5-9 mild; 10-14 moderate; 15-21 severe): 7 Source: Developed by Drs. Tree Sandra, Margret Santos, Mando Benítez and colleagues, with an educational pinky from [employer]. DEN-7 Assessment Billing DEN-7 Assessment Tool: DEN-7 Assessment 61305 Physical exam (Primary Care) Vital Signs: Last Vital Signs Pulse 66 12/29/23 12:22 Resp 13 12/29/23 12:22 BP 117/75 12/29/23 12:22 Pulse Ox 96 12/29/23 12:22 Oxygen Delivery Method Room Air 12/29/23 12:22 BMI result Body Mass Index 30.2 BMI Assessment/Plan discussion: High BMI High, discussed plan: lifestyle Tobacco/Smoking Status: Tobacco use Status Tobacco use date assessed 04/09/22 12/29/23 12:24 Patient Tobacco Use Status Former Tobacco user 12/29/23 12:24 Tobacco use type Cigarette 12/29/23 12:24 e-Cigarette/Vaping Use Never Used 12/29/23 12:24 PHQ-9: PHQ-9 Score PHQ-9: Total score 0 12/29/23 12:30 Thrive Assessment: Date of Thrive Assessment Date Thrive assessed 12/29/23 12/29/23 12:24 Currently or been in a relationship where the following occur: No concerns reported Results Reviewed Results Reviewed: [address] [address] [address] Scan Report Signed Patient: Ekta Olivares MR#: [id number] : 1990 Acct:[id number] Age/Sex: 33 / F ADM Date: 12/16/23 Loc: HO.ED Attending Dr: Ordering Physician: Petar Patiño MD Date of Service: 12/17/23 Procedure(s): CT abdomen pelvis wo IV con Accession Number(s): [id number] cc: Petar Patiño MD; Verona Gagnon [facility]~ EXAMINATION: CT ABDOMEN AND PELVIS WITHOUT CONTRAST CLINICAL INFORMATION: Right flank pain. COMPARISON: None available. TECHNIQUE: Multidetector volumetric imaging was performed from the superior aspect of the liver through the pubic symphysis. Sagittal and coronal reformatted images were obtained on the technologist's workstation. This CT examination was performed using dose optimization techniques as appropriate, variously including the following: *Automated exposure control *Adjustment of mA and/or kV according to patient size (this includes techniques or standardized protocols for targeted exams where dose is matched to indication/reason for exam; i.e. extremities or head) *Use of iterative reconstruction technique DLP: 581 mGy-cm FINDINGS: LUNG BASES: The visualized lung bases are unremarkable. LIVER, GALLBLADDER, AND BILIARY TREE: There is a subcentimeter hypodensity at the dome liver likely a small cyst. There is no intrahepatic biliary duct dilatation. The gallbladder is unremarkable with no evidence of radiopaque gallstones, gallbladder wall thickening, or obvious pericholecystic inflammatory changes. PANCREAS: Unremarkable. SPLEEN: Unremarkable. ADRENAL GLANDS: Unremarkable. KIDNEYS AND URETERS: The kidneys are normal in size, shape, and attenuation. Nonobstructing 2 mm calculus lower pole right kidney. There is no hydronephrosis BLADDER: Unremarkable. GASTROINTESTINAL TRACT: The small and large bowel are unremarkable. The appendix is unremarkable. ABDOMINAL WALL: No significant hernia is appreciated. LYMPH NODES: Normal. VASCULAR: Unremarkable. PELVIC VISCERA: Unremarkable. OSSEOUS STRUCTURES: There is bilateral sacroiliac subchondral sclerosis. CT/CT abdomen pelvis wo IV con IMPRESSION: 1. No CT evidence of acute intra-abdominal process to explain patient's pain symptoms. 2. Nonobstructing 2 mm calculus lower pole right kidney. Fleischner guidelines were followed. Electronically signed by: Kenyon Owusu MD 12/17/2023 02:01 AM EDT Dictated By: Kenyon Owusu MD Signed By: <Electronically signed by Kenyon Owusu MD in OV> 12/17/23 0201 DD/ TD/TT: 10/24/24 0100 Secretary To The Vice President: Coding Level of Care Code Est Pt Level 5 (99333) Complex EM visit Add On G2211 Diagnoses Hospital discharge follow-up Z09 BMI 30.0-30.9,adult Z68.30 Obesity, Class I, BMI 30-34.9 E66.811 Sclerosis of sacroiliac joint M53.3 Liver lesion K76.9 Elevated LFTs R79.89 Mild binge-eating disorder F50.810 Eating disorder severity or remission status: mild Anxiety and depression F41.9; F32.A Kidney stone on right side N20.0 Recurrent acute suppurative otitis media of right ear with spontaneous rupture of tympanic membrane H66.014 Otitis media type: suppurative Chronicity: acute Laterality: right Recurrence: recurrent Spontaneous tympanic membrane rupture: with spontaneous rupture Acute pain of right shoulder M25.511 Chronicity: acute Additional Codes DEN-7 Assessment Billing - DEN-7 Assessment Tool: DEN-7 Assessment 46446 ([id number]) Assessment & Plan Assessment & Plan (1) Hospital discharge follow-up: Code(s): Z09 - Encounter for follow-up examination after completed treatment for conditions other than malignant neoplasm Plan: . (2) BMI 30.0-30.9,adult: Code(s): Z68.30 - Body mass index [BMI] 30.0-30.9, adult Category: Medical (3) Obesity, Class I, BMI 30-34.9: Code(s): E66.811 - Obesity, class 1 Category: Medical (4) Sclerosis of sacroiliac joint: Comment: noted on CT 12/17/[address] [facility] , OSSEOUS STRUCTURES: There is bilateral sacroiliac subchondral sclerosis. Has back pain Code(s): M53.3 - Sacrococcygeal disorders, not elsewhere classified Category: Medical Plan: . (5) Liver lesion: Comment: noted on CT 12/17/[address] [facility] LIVER, GALLBLADDER, AND BILIARY TREE: There is a subcentimeter hypodensity at the dome liver likely a small cyst. There is no intrahepatic biliary duct dilatation. The gallbladder is unremarkable with no evidence of radiopaque gallstones, gallbladder wall thickening, or obvious pericholecystic inflammatory changes. Code(s): K76.9 - Liver disease, unspecified Category: Medical Plan: . (6) Elevated LFTs: Code(s): R79.89 - Other specified abnormal findings of blood chemistry Category: Medical Plan: . (7) Binge eating disorder: Code(s): F50.81 - Binge eating disorder Category: Medical Qualifiers: Eating disorder severity or remission status: mild Qualified Code(s): F50.810 - Binge eating disorder, mild Plan: . (8) Anxiety and depression: Code(s): F41.9 - Anxiety disorder, unspecified; F32.A - Depression, unspecified Category: Medical Plan: . (9) Kidney stone on right side: Code(s): N20.0 - Calculus of kidney Category: Medical Plan: . (10) Otitis media: Code(s): H66.90 - Otitis media, unspecified, unspecified ear Category: Medical Qualifiers: Otitis media type: suppurative Chronicity: acute Laterality: right Recurrence: recurrent Spontaneous tympanic membrane rupture: with spontaneous rupture Qualified Code(s): H66.014 - Acute suppurative otitis media with spontaneous rupture of ear drum, recurrent, right ear Plan: . (11) Right shoulder pain: Code(s): M25.511 - Pain in right shoulder Qualifiers: Chronicity: acute Qualified Code(s): M25.511 - Pain in right shoulder Plan: . Plan . Orders: Orders US abdomen limited Today K76.9 - Liver disease, unspecified, R79.89 - Other specified abnormal findings of blood chemistry Liver Panel Today K76.9 - Liver disease, unspecified, R79.89 - Other specified abnormal findings of blood chemistry Hepatitis A,B,C Profile Today K76.9 - Liver disease, unspecified, R79.89 - Other specified abnormal findings of blood chemistry Referrals Neuro Spine Referral M53.3 - Sacrococcygeal disorders, not elsewhere classified Medications: New amoxicillin-pot clavulanate 875-125 mg 1 tab PO BID 14 tabs 0RF 7 days
[2023-12-29 12:22] VITALS: BP 117/75; PULSE 66; RESP 13; O2SAT 96; BMI 30.2
== END 2023-12-29 13:00 | disposition home or self-care (01) ==
LOC: HO.HMCFM 12:13
PROVIDERS: PCP Nurse Practitioner Family; Visit Provider Nurse Practitioner Family
DX: N20.0 Calculus of kidney (principal); K76.9 Liver disease, unspecified; Z09 Encounter for follow-up examination after completed treatment for conditions other than malignant neoplasm; Z68.30 Body mass index [BMI] 30.0-30.9, adult; E66.811 Obesity, class 1; M53.3 Sacrococcygeal disorders, not elsewhere classified; R79.89 Other specified abnormal findings of blood chemistry; F50.810 Binge eating disorder, mild; F41.9 Anxiety disorder, unspecified; F32.A Depression, unspecified; H66.014 Acute suppurative otitis media with spontaneous rupture of ear drum, recurrent, right ear; M25.511 Pain in right shoulder

== ENCOUNTER 2023-12-29 12:56 | Outpatient (REF) | payer BC, SELFPAY ==
[2023-12-29 15:24] LABS: Alanine Aminotransferase 18 U/L (0-31); Albumin Level 4.4 g/dL (3.5-5.0); Alkaline Phosphatase 56 U/L (39-117); Aspartate Amino Transferase 26 U/L (5-31); Bilirubin Direct 0.2 mg/dL (0.0-0.5); Bilirubin Total 0.5 mg/dL (0.0-1.0); Total Protein 7.4 g/dL (6.5-8.0)
[2023-12-30 08:49] LABS: HBS Num1 19.64 mIU/mL (0-7.99); HBc Num1 0.14 S/CO (0.00-0.79); Hepatitis A Antibody IgM 0.18 Index (0-0.79); Hepatitis B Core Antibody Nonreactive (Nonreactive); Hepatitis B Surface Antigen Negative (Negative); ~HepC Num1 0.12 S/CO (0.00-0.79); ~Hepatitis A Antibody IgM Nonreactive (Nonreactive); ~Hepatitis B Surface Antibody REACTIVE (Nonreactive); ~Hepatitis C Antibody Nonreactive (Nonreactive)
== END 2023-12-29 12:57 | disposition home or self-care (01) ==
LOC: HO.WFDLDS 12:56
PROVIDERS: Visit Provider Nurse Practitioner Family
DX: Z09 Encounter for follow-up examination after completed treatment for conditions other than malignant neoplasm (principal); E66.811 Obesity, class 1; Z68.30 Body mass index [BMI] 30.0-30.9, adult; M53.3 Sacrococcygeal disorders, not elsewhere classified; R79.89 Other specified abnormal findings of blood chemistry; K76.9 Liver disease, unspecified; F50.810 Binge eating disorder, mild; F41.9 Anxiety disorder, unspecified; F32.A Depression, unspecified; N20.0 Calculus of kidney; H66.014 Acute suppurative otitis media with spontaneous rupture of ear drum, recurrent, right ear; M25.511 Pain in right shoulder
CPT/HCPCS: 36415; 80076; 86704; 86706; 86709; 86803; 87340; 96127

== ENCOUNTER 2024-01-08 09:11 | Outpatient (REF) | payer BC, SELFPAY ==
--- NOTE | ~2024-01-08 | US_ITS ---
EXAMINATION: US ABDOMEN LIMITED CLINICAL INFORMATION: Liver disease. Lesion on CT. COMPARISON: CT abdomen/pelvis dated 12/17/2023. TECHNIQUE: Real-time imaging of the right upper quadrant abdominal viscera. FINDINGS: PANCREAS: Unremarkable. LIVER: Normal. The liver is normal in size. The liver contour is normal. Parenchymal echogenicity is normal. No focal hepatic lesion. Previously seen small possible cyst was not appreciated on ultrasound examination. There is no intrahepatic biliary duct dilatation seen. GALLBLADDER: Normal. The gallbladder is physiologically distended without evidence of stones, sludge, polyps, wall thickening or pericholecystic fluid. COMMON BILE DUCT: Normal in caliber measuring 0.4 cm in diameter. RIGHT KIDNEY: Mid/lower pole stone measuring 0.5 cm. No hydronephrosis. No focal parenchymal lesions. The kidney measures 10.6 cm in maximum dimension. FREE FLUID: None. US/US abdomen limited IMPRESSION: 1. Previously seen small possible hepatic cyst was not appreciated on ultrasound examination. No new hepatic parenchymal lesion or biliary ductal dilatation. 2. Right mid/lower pole renal stone measuring 0.5 cm. No hydronephrosis. Electronically signed by: Jori Carson MD 01/08/2024 12:39 PM [facility]
== END 2024-01-08 09:12 | disposition home or self-care (01) ==
LOC: HO.US 09:11
PROVIDERS: PCP Nurse Practitioner Family; Visit Provider Nurse Practitioner Family
DX: K76.9 Liver disease, unspecified (principal); R79.89 Other specified abnormal findings of blood chemistry
CPT/HCPCS: 76705

== ENCOUNTER 2024-02-11 08:44 | Outpatient (AMB) | payer BC, SELFPAY ==
--- NOTE | 2024-02-11 09:06 | A.OFFVIS_ITS ---
Intake Visit Reasons: kidney stone Intake Note: New Patient presents for initial visit for kidney stone Urology Medications: none Blood Thinner: none Electric Distribution Checker Required: No Accompanied by: Self / Same As Patient Allergies No Known Allergies [No Known Allergies*] Allergy (Verified 02/11/24 09:48) Medication List - Last Reconciled 02/11/24 by CHRISTAL Gary fluoxetine 40 mg PO DAILY Lactobacillus combo no.23 (Omar Probiotic) cells PO multivitamin 1 tab PO DAILY omega-3 fatty acids (Fish Oil Concentrate) 1,000 mg PO DAILY HPI Comments Details: Ekta is a very pleasant 33-year-old female patient of . She has a past medical history of a liver lesion and recurrent ear infections. She presents to the office today as a new patient for nephrolithiasis. In discussion with the patient today she reports noting right-sided flank pain 3 months ago at which time she seeked emergency room care services in a [place] noted 2 mm nonobstructing right calculi. She reports shortly after her ER visit pain had subsided however most recently had an abdominal ultrasound for surveillance monitoring of liver lesion and patient noted to have 5 mm nonobstructing right renal calculus and recommendations were made for urology referral for further assessment evaluation. When asked she denies any previous history of nephrolithiasis and or surgical intervention for nephrolithiasis. She reports pain she had been experiencing has since subsided. She denies urinary urgency, urinary frequency, incontinence, nocturia, hematuria, dysuria, foul smelling urine, changes to urinary stream, flank pain, fever, and or chills. She is happy with her current voiding parameters. We discussed at length potential causes of nephrolithiasis as well as further intervention to include ESWL versus surveillance monitoring. We discussed importance of adequate hydration relation to nephrolithiasis as well as adding 1 oz of lemon juice to water daily. She otherwise offers no other issues or concerns at this time. [facility] Medical History Liver lesion History of recurrent ear infection Surgical History S/P abdominoplasty H/O section Family History Mother No problems noted. Father No problems noted. Maternal Grandmother No problems noted. Paternal Grandfather No problems noted. Social History Housing: Apartment Patient Tobacco Use Status: Former Tobacco user Tobacco use type: Cigarette e-Cigarette/Vaping Use: Never Used Second Hand Smoke Exposure: No service: No Current occupational status: employed Review of Systems Const All systems reviewed & are unremarkable except as noted in HPI and below Physical Exam Const General: cooperative, healthy appearing, comfortable, no acute distress, well developed, alert and awake Orientation/consciousness: patient oriented x3 Limitations: no limitations HEENT Head: Yes normal to inspection, Yes normocephalic and Yes atraumatic Ears: hearing grossly normal bilaterally Eyes General: appearance normal, both eyes and all related structures Neck Neck: Yes normal visual inspection and Yes trachea midline Chest Chest palpation & inspection: normal inspection of the chest Resp Effort & Inspection: normal respiratory effort and able to speak in complete sentences Cardio Rate: regular rate GI Inspection: Yes normal to inspection General: Yes no CVA tenderness Back/Spine/Pelvis Back: no CVA tenderness Skin General skin exam: no rashes or lesions noted Neuro General: patient oriented x3 Extrem General: Yes normal to inspection Psych Appearance: grossly normal and well kempt Mental Status: mental status grossly normal Speech and movement: Normal speech and movement present and Clear speech present Affect: normal affect Attitude: cooperative Thought process: Normal thought process present Thought content: Normal thought content present Insight: Fair insight present (Psych) Judgement: Fair judgement present (Psych) Results AMB Urinalysis, Automated UA Leukoctes 0 Dexter/uL Last Edit by Cameron Padron on 02/11/24 09:17 UA Nitrite Last Edit by Cameron Padron on 02/11/24 09:17 UA Urobilinogen 0.2 mg/dL Last Edit by Cameron Padron on 02/11/24 09:17 UA Protein 0 mg/dL Last Edit by Cameron Padron on 02/11/24 09:17 UA pH 6.0 Last Edit by Cameron Padron on 02/11/24 09:17 UA Blood 0 Praneeth/uL Last Edit by Cameron Padron on 02/11/24 09:17 UA Specific Pryor 1.015 Last Edit by Cameron Padron on 02/11/24 09:17 UA Ketone Last Edit by Cameron Padron on 02/11/24 09:17 UA Bilirubin 0 mg/dL Last Edit by Cameron Padron on 02/11/24 09:17 UA Glucose 0 mg/dL Last Edit by Cameron Padron on 02/11/24 09:17 Results Reviewed Results Reviewed: Laboratory Last Values Urine pH (Auto) 6.0 02/11/24 09:14 Specific Pryor (Auto) 1.015 02/11/24 09:14 Urine Protein (Auto) 0 mg/dL 02/11/24 09:14 Glucose (UA)(Auto) 0 mg/dL 02/11/24 09:14 Urine Blood (Auto) 0 Praneeth/uL 02/11/24 09:14 Urine Bilirubin (Auto) 0 mg/dL 02/11/24 09:14 Urine Urobilinogen (Auto) 0.2 mg/dL 02/11/24 09:14 Leukocyte Esterase (Auto) 0 Dexter/uL 02/11/24 09:14 Date of Service: 01/08/24 EXAMINATION: US ABDOMEN LIMITED FINDINGS: PANCREAS: Unremarkable. LIVER: Normal. The liver is normal in size. The liver contour is normal. Parenchymal echogenicity is normal. No focal hepatic lesion. Previously seen small possible cyst was not appreciated on ultrasound examination. There is no intrahepatic biliary duct dilatation seen. GALLBLADDER: Normal. The gallbladder is physiologically distended without evidence of stones, sludge, polyps, wall thickening or pericholecystic fluid. COMMON BILE DUCT: Normal in caliber measuring 0.4 cm in diameter. RIGHT KIDNEY: Mid/lower pole stone measuring 0.5 cm. No hydronephrosis. No focal parenchymal lesions. The kidney measures 10.6 cm in maximum dimension. FREE FLUID: None. IMPRESSION: 1. Previously seen small possible hepatic cyst was not appreciated on ultrasound examination. No new hepatic parenchymal lesion or biliary ductal dilatation. 2. Right mid/lower pole renal stone measuring 0.5 cm. No hydronephrosis. Assessment & Plan Assessment & Plan (1) Kidney stone on right side: Code(s): N20.0 - Calculus of kidney Category: Medical Plan Recent CT and abdominal ultrasound results reviewed with the patient today; as noted above. Patient currently denies any bothersome urinary issues or concerns. She reports be happy with current voiding parameters. Discussed, educated, and stressed the importance of adequate hydration relation to nephrolithiasis as well as overall health and well-being. Discussed adding 1 oz of lemon juice to water daily. Start vitamin B6 as discussed and prescribed. Will continue with surveillance monitoring at this time. Will obtain renal ultrasound in 6 months. Follow-up in 6 months with imaging to be completed prior; or sooner with any issues, concerns, and or questions. Orders: Orders AMB Urinalysis Automated Today Z13.9 - Encounter for screening, unspecified US renal BI 6 Months N20.0 - Calculus of kidney Medications: New pyridoxine (vitamin B6) 100 mg PO DAILY 90 tabs 1RF 90 days Patient Instructions: The patient had an opportunity to ask questions regarding the treatment plan. All questions were answered. Physical exam, labs, and imaging were discussed and reviewed in detail. As well as risks, benefits, and discussion of treatment choices. No major barriers to understanding were identified. The patient expressed understanding and agreement with the above treatment plan. The patient was made aware they should contact our office by phone for worsening of their current condition, the appearance of new symptoms, or with any questions or concerns. Compliance is encouraged with any medications and follow up testing that is ordered. It is a privilege to be allowed the opportunity to participate in? your urological care.? Again, if you have any questions or concerns If you have any questions or concerns please do not hesitate to contact me. The office is [phone]. This note is constructed using voice recognition software. While every effort has been made to ensure accuracy dishwasher preparer errors may have been included. Yours sincerely, CHRISTAL Gary Coding Level of Care Code New Pt Level 4 (61097) Diagnoses Kidney stone on right side N20.0
== END 2024-02-11 09:39 | disposition home or self-care (01) ==
PROVIDERS: PCP Nurse Practitioner Family; Visit Provider Nurse Practitioner Family
DX: N20.0 Calculus of kidney (principal); Z13.9 Encounter for screening, unspecified
CPT/HCPCS: 99204

== ENCOUNTER 2024-03-07 11:47 | Outpatient (AMB) | payer BC, SELFPAY ==
--- NOTE | 2024-03-07 11:50 | A.OFFPC_ITS ---
Vital Signs 03/07/24 11:54 Height 5 ft 2 in Weight 165 lb 6 oz BMI 30.2 BP 118/70 Blood Pressure Location Rt brachial Position Sitting Respiration 13 Pulse 61 Pulse Source Pulse Oximeter Pulse Oximetry (%) 99 Oxygen Delivery Method Room Air Intake Visit Reasons: Weight gain, routine fu Body Maker Required: No Allergies No Known Allergies [No Known Allergies*] Allergy (Verified 03/07/24 11:58) Medication List - Last Reconciled 03/07/24 by ANGEL Gongora- fluoxetine 40 mg PO DAILY Lactobacillus combo no.23 (Omar Probiotic) cells PO multivitamin 1 tab PO DAILY omega-3 fatty acids (Fish Oil Concentrate) 1,000 mg PO DAILY pyridoxine (vitamin B6) 100 mg PO DAILY 90 days Tobacco use date assessed: 03/07/24 Dental Screening Dental Screen Date: 03/07/24 Did you have a dental visit in the last 12 months?: Yes Did you have a dental problem in the last 6 months where you did not have access to dental care?: No Was dental information given to patient?: Patient has dentist HPI HPI Comments History of Present Illness Details 33-year-old female with binge eating dis order, major depressive disorder, generalized anxiety disorder, family hx of skin ca, recurrent ear infections, kidney stone, liver lesion s/p abdominoplasty 3 hernia repairs; done by plastics out in [place] 2020, s/p c section Social: and lives at home with her 3 children , 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 Referral cancelled today. The patient is a 33-year-old female presenting with unexplained weight gain and concerns regarding weight management. Over the past year, the patient reports a significant weight increase of approximately 15 to 20 pounds. Despite efforts to maintain a healthy diet and consistent physical activity, she has been unable to lose the weight. She states that she feels she may be gaining due to aging, but her weight remains unchanged since December, aside from recent months. Previous treatment for binge eating disorder has been effective, and she continues to see a therapist which has kept her disorder under control. Prozac (fluoxetine) at 40 mg has been effective for her. The patient mentions an increase in visceral fat according to her scale that measures body composition, with no significant muscle gain despite a consistent exercise routine at the gym. Her past medical history includes kidney stones; a urology consult was conducted and treatment with B6 prescribed, which she has yet to initiate. Needs RX sent. Limited ultrasound of the abdomen to evaluate the lesion noted on the CT scan of the liver WNL, no lesion noted. Repeat LFTs and include a hepatitis profile WNL. She also experienced mild anxiety, which is improving. There are no symptomatic issues with her thyroid or glucose levels currently, but previous laboratory results will be revisited for clarity. Her concern revolves around preventing long-term effects of weight gain, given her height of 5?1? to 5?2? and a weight of 165 lbs, placing her in the obese BMI category. Physical Exam General: Awake, alert. No apparent distress Eyes: Sclera and conjunctiva clear bilaterally Neck: thyroid nonpalp, trachea midline Cardiovascular: Regular rate and rhythm Respiratory: Clear to auscultation bilaterally Psych: Mood and affect appropriate Plan - Conduct blood tests to check thyroid f unction TSH and glucose levels to identify any underlying causes of weight gain. - Perform cholesterol screening and cons ider vitamin levels including , folate, and vitamin D. - Refill prescription for vitamin B6 to manage kidney stones. - Consider the influence of Prozac on we ight gain, but ensure patient continues medication due to its efficacy. - Continue current exercise and nutritio n plans, emphasize ongoing therapy compliance for continued management of eating disorder. Results: Labs from today show elevated LFTs, normal thyroid, hemoglobin A1c of 4.9%, a decrease in her HDL & an increase in her LDL when compared to the last labs Discussion Notes I discussed with the patient the possible influence of her current medication, fluoxetine, on her recent weight gain. While it has been highly effective and should not be discontinued, awareness of its side effects is crucial. I highlighted the importance of ruling out any physiological causes via proposed blood tests, focusing on thyroid health, glucose metabolism, and assessing cholesterol and vitamin levels. I advised that if all labs return normal, a further discussion of her health and weight management strategies can be explored. Lastly, we planned a follow-up after receiving test results, to determine an appropriate course of action that respects her health and personal goals. Will need to discuss her labs at next visit which will be for a CPE in about 2 weeks. Given her wt gain, decrease in LDL and elevated LFT, will need to review physical exercise... AST is higher than ALT ?? etoh... Patient was informed and verbally consented to the use of an ambient scribe for clinic note documentation during this visit. Patient Instructions - Proceed to the desktop support engineer for laborato ry requisitions and bloodwork. - Continue current diet and exercise reg imen. - Consider ensuring express vitamin B6 p ick up from the pharmacy. - Follow up as needed after labs for fur ther health planning. - Maintain utilization of therapy servic es for ongoing support in managing binge eating disorder. - Monitor any new symptoms and report an y significant changes in weight or health. This note is constructed using voice recognition software. While every effort has been made to ensure accuracy in cold roller, still errors may have been included Sometimes, these errors may affect the content or meaning of the given sentence . Total time spent caring for the patient today was 30 minutes. This includes time spent before the visit reviewing the chart, time spent during the visit, and time spent after the visit on documentation [facility] Medical History Liver lesion History of recurrent ear infection Surgical History S/P abdominoplasty H/O section Family History Mother No problems noted. Father No problems noted. Maternal Grandmother No problems noted. Paternal Grandfather No problems noted. Social History Housing: Apartment Patient Tobacco Use Status: Former Tobacco user Tobacco use type: Cigarette e-Cigarette/Vaping Use: Never Used Second Hand Smoke Exposure: No service: No Current occupational status: employed Cognitive needs: No Hearing needs: Yes (mild hearing problems) Vision needs: No Questionnaire PHQ-9 Over the last 2 weeks, how often have you been bothered by any of the following problems? 1. Little interest or pleasure in doing things: not at all 2. Feeling down, depressed, or hopeless: not at all 3. Trouble falling or staying asleep, or sleeping too much: not at all 4. Feeling tired or having little energy: several days 5. Poor appetite or overeating: not at all 6. Feeling bad about yourself - or that you are a failure or have let yourself or your family down: not at all 7. Trouble concentrating on things, such as reading the newspaper or watching television: several days 8. Moving or speaking so slowly that other people could have noticed. Or the opposite - being so fidgety or restless that you have been moving around a lot more than usual: not at all 9. Thoughts that you would be better off or of hurting yourself in some way: not at all Total score: 2 Depression Screening Interpretation: Negative Depression Screening Done: Yes [id number] - PHQ-9 Billing: Yes Source: Developed by Drs. Tree Sandra, Margret Santos, Mando Benítez and colleagues, with an educational pinky from [employer]. Thrive Questionnaire Date Thrive assessed: 03/07/24 I am a: Patient What is your living situation today?: I have a steady place to live Within the past 12 months, did the food you bought not last and you didn't have the money to get more?: Never true Within the past 12 months, did you worry whether your food would run out before you got money to buy more?: Never true Do you have trouble paying for medicines?: No Do you have trouble getting transportation to medical appointments?: No Do you have trouble paying your heating and electricity bill?: No Do you have trouble taking care of your child, family member or friend?: No Do you have trouble with day-to-day activities such as bathing, preparing meals, shopping, managing finances, etc.?: No Are you currently unemployed and looking for a job?: No Are you interested in more education?: No Please select the resources that you would like help with: None Currently or been in a relationship where the following occur: No concerns reported THRIVE Score: 0 AUDIT C Alcohol Use Questionnaire (AUDIT-C) 1. How often do you have a drink containing alcohol?: Monthly or less 2. How many drinks containing alcohol do you have on a typical day when you are drinking?: 1 or 2 3. How often do you have six or more drinks on one occasion?: Never Total Score: 1 Score Reviewed/Action Taken: Yes DEN-7 AMB Questionnaire DEN-7 Date DEN - 7 assessed: 03/07/24 Feeling nervous, anxious, or on edge: 1 = Several days Not being able to stop or control worryin = Several days Worrying too much about different things: 1 = Several days Trouble relaxin = Several days Being so restless that it is hard to sit still: 1 = Several days Becoming easily annoyed or irritable: 1 = Several days Feeling afraid as if something awful might happen: 1 = Several days Total DEN-7 score (0-4 normal; 5-9 mild; 10-14 moderate; 15-21 severe): 7 Source: Developed by Drs. Tree Sandra, Margret Santos, Mando Benítez and colleagues, with an educational pinky from [employer]. DEN-7 Assessment Billing DEN-7 Assessment Tool: DEN-7 Assessment 36478 Physical exam (Primary Care) Vital Signs: Last Vital Signs Pulse 61 03/07/24 11:54 Resp 13 03/07/24 11:54 BP 118/70 03/07/24 11:54 Pulse Ox 99 03/07/24 11:54 Oxygen Delivery Method Room Air 03/07/24 11:54 BMI result Body Mass Index 30.2 Tobacco/Smoking Status: Tobacco use Status Tobacco use date assessed 03/07/24 03/07/24 11:53 Patient Tobacco Use Status Former Tobacco user 03/07/24 11:50 Tobacco use type Cigarette 03/07/24 11:50 e-Cigarette/Vaping Use Never Used 03/07/24 11:50 PHQ-9: PHQ-9 Score PHQ-9: Total score 2 03/07/24 11:58 Depression Screening Interpretation: Negative Thrive Assessment: Date of Thrive Assessment Date Thrive assessed 03/07/24 03/07/24 11:53 Currently or been in a relationship where the following occur: No concerns reported Results Reviewed Results Reviewed: RUN: 03/07/24 1515 PAGE 1 [facility] [address] [place] [id number] Cisco Administrator: Marc Cardenas M.D. Specimen Inquiry Name: Ekta Olivares Age/Sex: 33/F : 1990 Unit#: [id number] Attend Dr: Verona Gagnon Re03/07/24 Status: REG REF Location: [facility] Disch: SPEC : [id number] CED: 03/07/24-1248 STATUS: COMP REQ : [id number] RECD: 03/07/24-[address]: [facility] COMP: 03/07/24-1449 ENTERED: 03/07/24-[address]: ORDERED: CMP, Lipid Panel, Vitamin D 25-OH, TSH Rflx Test Result Flag Reference Sodium 141 135-145 mmol/L Potassium 4.3 3.3-5.1 mmol/L CL 106 96-108 mmol/L CO2 30 H 22-29 mmol/L Gap 9 L 12-20 BUN 14 9-16 mg/dL Creat 0.71 0.5-1.4 mg/dL eGFR > 60 Chronic Kidney Disease: Estimated GFR < 60 mL/min/1.73m2 Severe Kidney Disease: Estimated GFR < 15 mL/min/1.73m2 Glucose, Random 87 60-115 mg/dL CA 9.2 # 8.4-10.2 mg/dL Total Bili 0.3 0.0-1.0 mg/dL AST (GOT) 43 H 5-31 U/L ALT (GPT) 32 H 0-31 U/L Protein, Total 7.3 6.5-8.0 g/dL Alb 4.4 3.5-5.0 g/dL Triglyceride 171 H <150 mg/dL Desirable Triglyceride: less than 150 mg/dL Borderline High Triglyceride 150-199 mg/dL High Triglyceride: 200-499 mg/dL Very High Triglyceride: greater than or equal to 5OO mg/dL Cholesterol 178 <200 mg/dL Desirable Cholesterol: less than 200 mg/dL Borderline High Cholesterol: 200-239 mg/dL High Cholesterol: greater than 239 mg/dL LDL Calculated 109 H <100 mg/dL Desirable LDL: less than 100 mg/dL Near Optimal/Above Optimal LDL: 110-129 mg/dL Borderline High LDL: 130-159 mg/dL High LDL: 160-189 mg/dL Very High LDL: greater than or equal to 190 mg/dL HDL 35 L >40 mg/dL Desirable HDL: greater than 40 mg/dL Note: This HDL assay may give artificially low results in patients with liver disease. Alk Phos 47 39-117 U/L Vit D 25-OH Tot 80.9 >30 ng/mL Health Based Reference Values* < 20 ng/mL Deficient 20-30 ng/mL Insufficient > 30 ng/mL Sufficient *Narcisa SCHULTZ. N Engl J Med. 2007;[id number]:[id number] Care must be taken in interpreting Vitamin D results from different laboratories and methodologies. Published data demonstrated that results from patients undergoing hemodialysis may show a negative bias when tested with various automated 25-OH vitamin D assays when compared to LC-MS/MS. When testing samples from patients whose predominant form of Vitamin D is Vitamin D2, such as patients receiving Vitamin D2 supplementation, results that are subtherapeutic should be confirmed with another method such as LC-MS/MS. TSH 1.44 0.32-4.0 uIU/mL Coding Level of Care Code Est Pt Level 4 (39439) Complex EM visit Add On G2211 Diagnoses Mild binge-eating disorder F50.810 Eating disorder severity or remission status: mild BMI 30.0-30.9,adult Z68.30 Obesity, Class I, BMI 30-34.9 E66.811 Anxiety and depression F41.9; F32.A Elevated LFTs R79.89 Low HDL (under 40) E78.6 Elevated LDL cholesterol level E78.00 Additional Codes DEN-7 Assessment Billing - DEN-7 Assessment Tool: DEN-7 Assessment 07720 ([id number]) PHQ-9 - 32798 - PHQ-9 Billing: Yes ([id number]) Assessment & Plan Assessment & Plan (1) Binge eating disorder: Code(s): F50.81 - Binge eating disorder Category: Medical Qualifiers: Eating disorder severity or remission status: mild Qualified Code(s): F50.810 - Binge eating disorder, mild (2) BMI 30.0-30.9,adult: Code(s): Z68.30 - Body mass index [BMI] 30.0-30.9, adult Category: Medical (3) Obesity, Class I, BMI 30-34.9: Code(s): E66.811 - Obesity, class 1 Category: Medical (4) Anxiety and depression: Code(s): F41.9 - Anxiety disorder, unspecified; F32.A - Depression, unspecified Category: Medical (5) Elevated LFTs: Code(s): R79.89 - Other specified abnormal findings of blood chemistry Category: Medical (6) Low HDL (under 40): Code(s): E78.6 - Lipoprotein deficiency Category: Medical (7) Elevated LDL cholesterol level: Code(s): E78.00 - Pure hypercholesterolemia, unspecified Category: Medical Plan . Orders: Orders Vitamin B12 and Folate Today E66.811 - Obesity, class 1, Z68.30 - Body mass index [BMI] 30.0-30.9, adult TSH reflex Free T4 Today E66.811 - Obesity, class 1, F50.810 - Binge eating disorder, mild, Z68.30 - Body mass index [BMI] 30.0-30.9, adult Comprehensive Met. Panel Today E66.811 - Obesity, class 1, F50.810 - Binge eating disorder, mild, Z68.30 - Body mass index [BMI] 30.0-30.9, adult Hemoglobin A1c Today E66.811 - Obesity, class 1, F50.810 - Binge eating disorde r, mild, Z68.30 - Body mass index [BMI] 30.0-30.9, adult Lipid Panel Today E66.811 - Obesity, class 1, Z68.30 - Body mass index [BMI] 30.0-30.9, adult Vitamin D 25-OH Total Today E66.811 - Obesity, class 1, Z68.30 - Body mass index [BMI] 30.0-30.9, adult Medications: Refilled pyridoxine (vitamin B6) 100 mg PO DAILY 90 days 90 tabs 1RF
[2024-03-07 11:54] VITALS: BP 118/70; PULSE 61; RESP 13; O2SAT 99; BMI 30.2
== END 2024-03-07 12:19 | disposition home or self-care (01) ==
PROVIDERS: PCP Nurse Practitioner Family; Visit Provider Nurse Practitioner Family
DX: F50.810 Binge eating disorder, mild (principal); Z68.30 Body mass index [BMI] 30.0-30.9, adult; E66.811 Obesity, class 1; F41.9 Anxiety disorder, unspecified; F32.A Depression, unspecified; R79.89 Other specified abnormal findings of blood chemistry; E78.6 Lipoprotein deficiency; E78.00 Pure hypercholesterolemia, unspecified

== ENCOUNTER → 2024-03-07 11:47 | Outpatient (BNVA) | payer BC, SELFPAY | PROVIDERS: PCP Nurse Practitioner Family; Visit Provider Nurse Practitioner Family | DX: F50.810 Binge eating disorder, mild (principal); E66.811 Obesity, class 1; Z68.30 Body mass index [BMI] 30.0-30.9, adult; F41.9 Anxiety disorder, unspecified; F32.A Depression, unspecified; R79.89 Other specified abnormal findings of blood chemistry; E78.6 Lipoprotein deficiency; E78.00 Pure hypercholesterolemia, unspecified | CPT/HCPCS: 96127 ==

== ENCOUNTER 2024-03-07 12:47 | Outpatient (REF) | payer BC, SELFPAY ==
[2024-03-07 14:30] LABS: Estimated Average Glucose 94 mg/dL; Hemoglobin A1C 102.2447 umol/L; Hemoglobin A1c % 4.9 % (<6.0); Total Hemoglobin (HGBA1C) 3375.9805 umol/L
[2024-03-07 14:31] LABS: Alanine Aminotransferase 32 U/L (0-31); Albumin Level 4.4 g/dL (3.5-5.0); Alkaline Phosphatase 47 U/L (39-117); Anion Gap 9 (12-20); Aspartate Amino Transferase 43 U/L (5-31); Bilirubin Total 0.3 mg/dL (0.0-1.0); Blood Urea Nitrogen 14 mg/dL (9-16); Calcium 9.2 mg/dL (8.4-10.2); Carbon Dioxide 30 mmol/L (22-29); Chloride 106 mmol/L (96-108); Cholesterol 178 mg/dL (<200); Estimated Glomerular Filt Rate > 60; Glucose Random 87 mg/dL (60-115); HDL Cholesterol 35 mg/dL (>40); LDL Cholesterol Calculated 109 mg/dL (<100); Potassium 4.3 mmol/L (3.3-5.1); Sodium 141 mmol/L (135-145); Total Protein 7.3 g/dL (6.5-8.0); Triglycerides 171 mg/dL (<150)
[2024-03-07 14:49] LABS: TSH reflex Free T4 1.44 uIU/mL (0.32-4.0); Vitamin D 25-OH Total 80.9 ng/mL (>30)
[2024-03-07 14:53] LABS: Folate 15.5 ng/mL (> or = 4.0); Vitamin B12 1223 pg/mL (200-900)
== END 2024-03-07 12:48 | disposition home or self-care (01) ==
LOC: HO.WFDLDS 12:47
PROVIDERS: Visit Provider Nurse Practitioner Family
DX: E66.811 Obesity, class 1 (principal); Z68.30 Body mass index [BMI] 30.0-30.9, adult; F50.810 Binge eating disorder, mild; E66.01 Morbid (severe) obesity due to excess calories; Z13.1 Encounter for screening for diabetes mellitus
CPT/HCPCS: 36415; 80053; 80061; 82306; 82607; 82746; 83036; 84443

== ENCOUNTER 2024-03-30 13:01 | Outpatient (AMB) | payer BC, SELFPAY ==
--- NOTE | 2024-03-30 13:09 | A.OFFPC_ITS ---
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: No Allergies No Known Allergies [No Known Allergies*] Allergy (Verified 03/30/24 13:36) Medication List - Last Reconciled 03/30/24 by Verona Gagnon, MEDICAID SERVICE COORDINATOR-BC fluoxetine 40 mg PO DAILY Lactobacillus combo no.23 (Omar Probiotic) cells PO multivitamin 1 tab PO DAILY omega-3 fatty acids (Fish Oil Concentrate) 1,000 mg PO DAILY pyridoxine (vitamin B6) 100 mg PO DAILY 90 days Tobacco use date assessed: 03/07/24 Dental Screening Dental Screen Date: 03/07/24 HPI HPI Comments History of Present Illness Details 33-year-old female with binge eating dis order, major depressive disorder, generalized anxiety disorder, family hx of skin ca, recurrent ear infections, kidney stone s/p abdominoplasty 3 hernia repairs; done by plastics out in [place] 2020, s/p c section Social: and lives at home with her 3 children , 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 Family hx: no changes since last year + stroke, CVA, Skin ca Health maintenance Pap UTD Immunizations - UTD on flu, COVID, Td SPECIALIST SHE IS ACTIVE WITH: Functional Medicine Doctor at [facility] [place] [facility] Allergist CARD CLEANER [facility] consult 01/2024 reviewed, start b6 and lemon juice RTO 6 mo repeat imaging [facility] 2023 no changes The patient is a 33-year-old female presenting for a complete physical examination and inquiry into weight loss medication, specifically to address elevated cholesterol and liver enzyme levels. She previously noted high DHEA sulfate levels with her functional medicine doctor, though no further action was taken. The patient believes dietary habits are healthy and there is no family hi story of elevated cholesterol. Her HDL levels have decreased over time, while her LDL occasionally rises above ideal values. During recent lab work, elevated liver enzymes were observed, potentially linked to occasional alcohol use and recent medications, including Tylenol and ibuprofen used for dental pain management and a kidney stone episode. The liver ultrasound during her kidney stone hospitalization revealed no significant lesions. The patient continues to experience challenges with weight gain and inability to lose weight despite maintaining a healthy diet and exercise regimen. She experienced a high B12 level, deemed clinically insignificant. Past binge eating has resolved, and she feels better equipped mentally to manage her diet. 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 - Gastrointestinal: Denies chronic alcoh ol use but reports recent extended use of Tylenol and ibuprofen. - Musculoskeletal: Reports no joint pain or stiffness. - Eyes: No reported changes in vision. - Psychiatric: Resolved issues with denver e eating, improved mental state. Exam General: Well developed, well nourished, in no acute distress. Appears stated age. Head: Normocephalic, atraumatic. Eyes: Pupils are equal, round and reactive to light and accommodation. Conjunctivae are clear. Vision grossly normal. Ears: TMs clear AU, EACS clear on L, Cerumen impaction R successfully cleared w/ lavage, TM intact and clear Nose: Patent, without discharge. Mouth: There are no ulcers or lesions noted. No inflammation, no post nasal drip, no plaques nor exudates. Neck: Supple, no adenopathy or thyromegaly. Lungs: Clear to auscultation bilaterally. No rales, rhonchi or wheeze noted. Good air flow in all posey. Heart: Regular rate and rhythm. No murmurs, click, rubs or gallops are noted. Abdomen: Bowel sounds present in all quadrants. The abdomen is soft, nontender, with no masses or organomegaly noted. No hernias are noted. Musculoskeletal: Joints are nontender, without swelling, redness, or effusions. Range of motion is observed to be normal. Pulses: Peripheral pulses are equal and palpable bilaterally. Extremities: No clubbing, cyanosis nor edema is noted. Neurologic: Gait and station normal. Cranial Nerves 2-12 intact. Motor strength grossly symmetrical and intact. No sensory loss. Balance normal. Skin: No rashes, ulcers, or lesions noted. Turgor is good. Skin color is good. Hair and nails are without abnormalities. Psych: Normal eye contact, affect and mood appropriate, and normal interactions. Patient is alert and appropriate to context. Results: Labs from today show elevated LFTs, normal thyroid, hemoglobin A1c of 4.9%, a decrease in her HDL & an increase in her LDL when compared to the last labs Given her wt gain, decrease in LDL and elevated LFT, will need to review physical exercise... AST is higher than ALT -- denies etoh use regularly Discussion Notes I discussed with the patient her concerns about elevated cholesterol and liver enzymes. Options for medically-assisted weight loss were reviewed, highlighting the pros and cons of different treatments. We reviewed the extended use of metformin for weight loss purposes, including its mechanism, potential side effects such as B vitamin effects, and overall safety compared to injectables. Options like Wellbutrin were considered but previously tried and discontinued due to adverse effects. I recommended starting metformin for its dual benefits on weight and fatty liver. We agreed on monitoring her weight and liver enzymes closely, ensuring follow-up in 12 weeks. The patient was informed of the importance of fasting for her upcoming lab work to accurately monitor cholesterol and liver markers. Plan - Elevated Cholesterol: Initiate metform in for weight management which may aid in cholesterol control. Continue monitoring cholesterol levels in fasting labs. - Elevated Liver Enzymes: Consider the i mpact of acetaminophen and ibuprofen within the context of normalizing liver function. Plan to re-evaluate in follow- up labs. - Potential Weight Loss: Engage metformi n therapy and agency legal counsel on diet and exe rcise adherence. Monitor side effects and revisits set in 12 weeks. - Follow up on resolved binge eating hab its, ensure continuation of mental well- being. - Reassess for any recurrence of kidney stones or related symptoms given prior history. - Continuing general health surveillance , ensuring vaccinations and screenings are current, maintaining routine dermatological and ophthalmic care. Patient was informed and verbally consented to the use of an ambient scribe for clinic note documentation during this visit. [facility] Medical History Liver lesion History of recurrent ear infection Surgical History S/P abdominoplasty H/O section Family History Mother No problems noted. Father No problems noted. Maternal Grandmother No problems noted. Paternal Grandfather No problems noted. Social History Housing: Apartment Patient Tobacco Use Status: Former Tobacco user Tobacco use type: Cigarette e-Cigarette/Vaping Use: Never Used Second Hand Smoke Exposure: No service: No Current occupational status: employed Cognitive needs: No Hearing needs: Yes (mild hearing problems) Vision needs: No Questionnaire PHQ-9 Over the last 2 weeks, how often have you been bothered by any of the following problems? 53144 - PHQ-9 Billing: Patient declined-do not bill Source: Developed by Drs. Tree Sandra, Margret Santos, Mando Benítez and colleagues, with an educational pinky from [employer]. Thrive Questionnaire Date Thrive assessed: 03/30/24 I am a: Patient What is your living situation today?: I have a steady place to live Within the past 12 months, did the food you bought not last and you didn't have the money to get more?: Never true Within the past 12 months, did you worry whether your food would run out before you got money to buy more?: Never true Do you have trouble paying for medicines?: No Do you have trouble getting transportation to medical appointments?: No Do you have trouble paying your heating and electricity bill?: No Do you have trouble taking care of your child, family member or friend?: No Do you have trouble with day-to-day activities such as bathing, preparing meals, shopping, managing finances, etc.?: No Are you currently unemployed and looking for a job?: No Are you interested in more education?: No Please select the resources that you would like help with: None Currently or been in a relationship where the following occur: No concerns reported THRIVE Score: 0 DEN-7 AMB Questionnaire DEN-7 Date DEN - 7 assessed: 03/07/24 Source: Developed by Drs. Tree Sandra, Margret Santos, Mando Benítez and colleagues, with an educational pinky from [employer]. Physical exam (Primary Care) Vital Signs: Last Vital Signs Temp 98.3 F 03/30/24 13:11 Pulse 66 03/30/24 13:11 Resp 12 03/30/24 13:11 BP 102/68 03/30/24 13:11 Pulse Ox 97 03/30/24 13:11 Oxygen Delivery Method Room Air 03/30/24 13:11 BMI result Body Mass Index 30.2 BMI Assessment/Plan discussion: High BMI High, discussed plan: lifestyle Tobacco/Smoking Status: Tobacco use Status Tobacco use date assessed 03/07/24 03/30/24 13:13 Patient Tobacco Use Status Former Tobacco user 03/30/24 13:13 Tobacco use type Cigarette 03/30/24 13:13 e-Cigarette/Vaping Use Never Used 03/30/24 13:13 Thrive Assessment: Date of Thrive Assessment Date Thrive assessed 03/30/24 03/30/24 13:13 Currently or been in a relationship where the following occur: No concerns reported Office Procedures Cerumen Removal From which ear canal was the cerumen removed: right Removal: irrigation Notes: patient tolerated procedure well, no complications and ear canal clear 51263-[id number] Irrigation/Lavage Office Procedure Misc Details: 15 minutes spent Discussing different forms of medications to help with weight loss. Discouraged the use of GLP-1s due to the need to use lifelong, weight gain after discontinuation, cost and cancer risk. Educated about the use of Wellbutrin which can be used in patients without a seizure history. This medication works by blocking out the reward center related to mindless eating. It also has a mild stimulating effect. The side effect profile includes mild anxiety as well as a slight dizzy sensation. Another medication used is metformin, this is a diabetic medication. This medication has GI side effects. But can be very beneficial in aiding with weight loss in patients without diabetes. Topiramate was also discussed. This is a seizure medication with side effect profile that includes need to monitor LFTs as well as blood counts. One of the side effects is weight loss. Another medication, Phentermine is a stimulant/controlled substance. This is an anorexient that is used short-term medication used. =. Finally the use of a medication called Contrave, which is Wellbutrin + naltrexone can be used. The brand name is usually not cover therefore would have to prescribe the 2 medications individually. This medication works just as the Wellbutrin; naltrexone aides in further blocking of the reward center to aide in wt loss. After discussion of the above, the patient wishes to proceed with metformin, as she has tried Wellbutrin and this has not work well for her in the past in regards to mood. Office Procedure Billing Code: AMB Procedure Billing Code (G0449 15 MINUTE OBESITY EDUCATION) Coding Level of Care Code Est Pt Prev Care 18-39y(85772) Diagnoses Encounter for general adult medical examination without abnormal findings Z00.00 Elevated LFTs R79.89 Elevated LDL cholesterol level E78.00 Obesity, Class I, BMI 30-34.9 E66.811 Low HDL (under 40) E78.6 Impacted cerumen, right ear H61.21 CPT Codes Office Procedure - CPT: 68200-Zgh Irrigation/Lavage ([id number]) Office Procedure - Office Procedure Billing Code: AMB Procedure Billing Code ([id number]) Assessment & Plan Assessment & Plan (1) Encounter for general adult medical examination without abnormal findings: Code(s): Z00.00 - Encounter for general adult medical examination without abnormal findings (2) Elevated LFTs: Code(s): R79.89 - Other specified abnormal findings of blood chemistry Category: Medical (3) Elevated LDL cholesterol level: Code(s): E78.00 - Pure hypercholesterolemia, unspecified Category: Medical (4) Obesity, Class I, BMI 30-34.9: Code(s): E66.811 - Obesity, class 1 Category: Medical (5) Low HDL (under 40): Code(s): E78.6 - Lipoprotein deficiency Category: Medical (6) Impacted cerumen, right ear: Code(s): H61.21 - Impacted cerumen, right ear Plan . Orders: Orders Comprehensive [place]. Panel Fast 3 Months E78.00 - Pure hypercholesterolemia, uns pecified, R79.89 - Other specified abnormal findings of blood chemistry Lipid Panel 3 Months E78.00 - Pure hypercholesterolemia, unspecified, R79.89 - Other specified abnormal findings of blood chemistry Medications: New metformin ER 500 mg PO QPM 90 tabs 0RF Refilled pyridoxine (vitamin B6) 100 mg PO DAILY 90 tabs 1RF 90 days Patient Instructions: Patient Instructions - Begin metformin 500 mg extended release with evening meal; if no evening meal, take with morning meal. - Monitor weight and dietary intake; keep daily calories around 2000. - Fast for 12 hours before next scheduled lab work in 12 weeks. - supply chain tech prescribed medications: Prozac, Vitamin B6. - Maintain current exercise regimen and alcohol moderation. - Schedule follow-up appointment with me in 12 weeks and arrive for labs one week prior. Health screenings for women You should visit your health care provider from time to time, even if you are healthy. The purpose of these visits is to: Screen for medical issues Assess your risk for future medical problems Encourage a healthy lifestyle Update vaccinations and other preventive care services Help you get to know your provider in case of an illness Information Even if you feel fine, you should still see your provider for regular checkups. These visits can help you avoid problems in the future. For example, the only way to find out if you have high blood pressure is to have it checked regularly. High blood sugar and high cholesterol levels also may not have any symptoms in the early stages. A simple blood test can check for these conditions. There are specific times when you should see your provider or receive specific health screenings. The [place] Preventive Services Task Force publishes a list of recommended screenings. Below are screening guidelines for women ages 18 to 39. BLOOD PRESSURE SCREENING Your blood pressure should be checked at least once every 3 to 5 years if: Your blood pressure is in the normal range (top number less than 120 mm Hg and bottom number less than 80 mm Hg) You don't have risk factors for high blood pressure Ask your provider if you need your blood pressure checked more often if: The top number is 120 to 129 mm Hg or the bottom number is 70 to 79 mm Hg You have diabetes, heart disease, kidney problems, are overweight, or have certain other health conditions You have a first-degree relative with high blood pressure You are Black You had high blood pressure during a If the top number is 130 mm Hg or greater or the bottom number is 80 mm Hg or greater, this is considered stage 1 hypertension. Schedule an appointment with your provider to learn how you can reduce your blood pressure. Watch for blood pressure screenings in your area. Ask your provider if you can stop in to have your blood pressure checked. BREAST CANCER SCREENING Experts do not agree about the benefits of breast self-exams in finding breast cancer or saving lives. Talk to your provider about what is best for you. A screening mammogram is not recommended for most women under age 40. Your provider may discuss and recommend mammograms, MRI scans, or ultrasounds if you have an increased risk for breast cancer, such as: A mother or sister who had breast cancer at a young age (most often starting screening earlier than the age the close relative was diagnosed) You carry a high-risk genetic marker CERVICAL CANCER SCREENING Cervical cancer screening should start at age 21 years unless your provider advises otherwise. After the first test: Women ages 21 through 29 should have a Pap test every 3 years. Exoprts do not agree on whether HPV testing is recommended for this age group. Women ages 30 through 65 should be screened with either a Pap test every 3 years or the HPV test every 5 years or both tests every 5 years (called cotesting ). Women who have been treated for precancer (cervical dysplasia) should continue to have Pap tests for 20 years after treatment or until age 65, whichever is longer. If you have had your uterus and cervix removed (total hysterectomy), and you have not been diagnosed with cervical cancer or precancer (high grade cervical neoplasia), you do not need cervical cancer screening. CHOLESTEROL SCREENING Cholesterol screening should begin at: Age 45 for women with no known risk factors for coronary heart disease Age 20 for women with known risk factors for coronary heart disease Repeat cholesterol screening should take place: Every 5 years for women with normal cholesterol levels More often if changes occur in lifestyle (including weight gain and diet) More often if you have diabetes, heart disease, kidney problems, or certain other conditions DIABETES SCREENING You should be screened for diabetes starting at age 35 and then repeated every 3 years if you have no risk factors for diabetes. Screening may need to start earlier and be repeated more often if you have other risk factors for diabetes, such as: You have a first degree relative with diabetes. You are overweight or have obesity. You have high blood pressure, prediabetes, or a history of heart disease. Screening for diabetes should be done if you are planning to become and you are overweight and have other risk factors such as high blood pressure. DENTAL EXAM Go to the dentist once or twice every year for an exam and cleaning. Your dentist will evaluate if you need more frequent visits. EYE EXAM Have an eye exam every 5 to 10 years before age 40. If you have vision problems, have an eye exam every 2 years or more often if recommended by your provider. You should have an eye exam that includes an examination of your retina (back of your eye) at least every year if you have diabetes. IMMUNIZATIONS Commonly needed vaccines include: Flu shot: get one every year. COVID-19 vaccine: ask your provider what is best for you. Tetanus-diphtheria and acellular pertussis (Tdap) vaccine: have one at or after age 19 as one of your tetanus-diphtheria vaccines if you did not receive it as an adolescent. Tetanus-diphtheria: have a booster (or Tdap) every 10 years. Varicella vaccine: receive 2 doses if you never had chickenpox or the varicella vaccine. Hepatitis B vaccine: receive 2, 3, or 4 doses, depending on your exact circumstances. Measles, mumps, and rubella (MMR) vaccine: receive 1 to 2 doses if you are not already immune to MMR. Your provider can tell you if you are immune. Ask your provider about the human papillomavirus (HPV) vaccine if: You have not received the HPV vaccine in the past You have not completed the full vaccine series (you should catch up on this shot) Ask your provider if you should receive other immunizations if you have certain health problems that increase your risk for some diseases such as pneumonia. INFECTIOUS DISEASE SCREENING Women who are sexually active should be screened for chlamydia and gonorrhea up until age 25. Women 25 years and older should be screened for chlamydia and gonorrhea if at high risk. Screening for hepatitis C: All adults ages 18 to 79 should get a one-time test for hepatitis C. people should be screened at every . Screening for human immunodeficiency virus (HIV): All people ages 15 to 65 should get a one-time test for HIV. Depending on your lifestyle and medical history, you may also need to be screened for infections such as syphilis and HIV, as well as other infections. PHYSICAL EXAM All adults should visit their provider from time to time, even if they are healthy. The purpose of these visits is to: Screen for disease Assess your risk of future medical problems Encourage a healthy lifestyle Update your vaccinations and other preventive care services Maintain a relationship with a provider in case of an illness Your height, weight, and BMI should be checked at every exam. During your exam, your provider may ask you about: Depression and anxiety Diet and exercise Alcohol and tobacco use Safety issues, such as using seat belts, smoke detectors, and intimate partner violence Your medicines and risk for interactions SKIN SELF-EXAM Your provider may check your skin for signs of skin cancer, especially if you're at high risk, such as if you: Have had skin cancer before Have close relatives with skin cancer Have a weakened immune system OTHER SCREENING Talk with your provider about colon cancer screening if you have a strong family history of colon cancer or polyps, or if you have had inflammatory bowel disease or polyps yourself. Routine bone density screening of women under 40 is not recommended.
[2024-03-30 13:11] VITALS: BP 102/68; PULSE 66; RESP 12; TEMP 36.8; O2SAT 97; BMI 30.2
== END 2024-03-30 14:06 | disposition home or self-care (01) ==
PROVIDERS: PCP Nurse Practitioner Family; Visit Provider Nurse Practitioner Family
DX: Z00.00 Encounter for general adult medical examination without abnormal findings (principal); R79.89 Other specified abnormal findings of blood chemistry; Z68.30 Body mass index [BMI] 30.0-30.9, adult; E66.811 Obesity, class 1; E78.00 Pure hypercholesterolemia, unspecified; E78.6 Lipoprotein deficiency; H61.21 Impacted cerumen, right ear

== ENCOUNTER → 2024-03-30 13:01 | Outpatient (BNVA) | payer BC, SELFPAY | PROVIDERS: PCP Nurse Practitioner Family; Visit Provider Nurse Practitioner Family | DX: Z00.01 Encounter for general adult medical examination with abnormal findings (principal); H61.21 Impacted cerumen, right ear; R79.89 Other specified abnormal findings of blood chemistry; E78.00 Pure hypercholesterolemia, unspecified; E66.811 Obesity, class 1; Z68.30 Body mass index [BMI] 30.0-30.9, adult; E78.6 Lipoprotein deficiency | CPT/HCPCS: 69209 ==

== ENCOUNTER 2024-06-22 09:45 | Outpatient (REF) | payer BC, SELFPAY ==
[2024-06-22 11:59] LABS: Alanine Aminotransferase 21 U/L (0-31); Albumin Level 4.2 g/dL (3.5-5.0); Alkaline Phosphatase 41 U/L (39-117); Anion Gap 10 (12-20); Aspartate Amino Transferase 30 U/L (5-31); Bilirubin Total 0.5 mg/dL (0.0-1.0); Blood Urea Nitrogen 9 mg/dL (9-16); Calcium 9.1 mg/dL (8.4-10.2); Carbon Dioxide 27 mmol/L (22-29); Chloride 107 mmol/L (96-108); Cholesterol 157 mg/dL (<200); Estimated Glomerular Filt Rate > 60; Glucose Fasting 83 mg/dL (60-99); HDL Cholesterol 39 mg/dL (>40); LDL Cholesterol Calculated 102 mg/dL (<100); Potassium 4.3 mmol/L (3.3-5.1); Sodium 140 mmol/L (135-145); Total Protein 7.1 g/dL (6.5-8.0); Triglycerides 81 mg/dL (<150)
== END 2024-06-22 09:46 | disposition home or self-care (01) ==
LOC: HO.WFDLDS 09:45
PROVIDERS: Visit Provider Nurse Practitioner Family
DX: E78.00 Pure hypercholesterolemia, unspecified (principal); R79.89 Other specified abnormal findings of blood chemistry
CPT/HCPCS: 36415; 80053; 80061

== ENCOUNTER 2024-06-29 14:20 | Outpatient (AMB) | payer BC, SELFPAY ==
--- NOTE | 2024-06-29 14:16 | A.OFFPC_ITS ---
Intake Visit Reasons: fu wt loss/metformin/lipids/lft labs 1 week before Intake Note: Telehealth follw up to review labs and med review Senior Counsel Commercial Required: No Allergies No Known Allergies [No Known Allergies*] Allergy (Verified 06/29/24 15:05) Medication List - Last Reconciled 06/29/24 by Verona Gagnon, ROUTE DELIVERY DRIVER-BC fluoxetine 40 mg PO DAILY Lactobacillus combo no.23 (Omar Probiotic) cells PO metformin ER 500 mg PO QPM multivitamin 1 tab PO DAILY omega-3 fatty acids (Fish Oil Concentrate) 1,000 mg PO DAILY pyridoxine (vitamin B6) 100 mg PO DAILY 90 days Tobacco use date assessed: 03/07/24 Dental Screening Dental Screen Date: 03/07/24 HPI HPI Comments History of Present Illness Details unable to reach via phone x 3 LMOM that office would call her back to reschedule. [facility] Medical History Liver lesion History of recurrent ear infection Surgical History S/P abdominoplasty H/O section Family History Mother No problems noted. Father No problems noted. Maternal Grandmother No problems noted. Paternal Grandfather No problems noted. Social History Housing: Apartment Patient Tobacco Use Status: Former Tobacco user Tobacco use type: Cigarette e-Cigarette/Vaping Use: Never Used Second Hand Smoke Exposure: No service: No Current occupational status: employed Cognitive needs: No Hearing needs: Yes (mild hearing problems) Vision needs: No Questionnaire Thrive Questionnaire Date Thrive assessed: 02/29/24 I am a: Patient What is your living situation today?: I have a steady place to live Within the past 12 months, did the food you bought not last and you didn't have the money to get more?: Never true Within the past 12 months, did you worry whether your food would run out before you got money to buy more?: Never true Do you have trouble paying for medicines?: No Do you have trouble getting transportation to medical appointments?: No Do you have trouble paying your heating and electricity bill?: No Do you have trouble taking care of your child, family member or friend?: No Do you have trouble with day-to-day activities such as bathing, preparing meals, shopping, managing finances, etc.?: No Are you currently unemployed and looking for a job?: No Are you interested in more education?: No Please select the resources that you would like help with: None Currently or been in a relationship where the following occur: No concerns reported THRIVE Score: 0 DEN-7 AMB Questionnaire DEN-7 Date DEN - 7 assessed: 03/07/24 Source: Developed by Drs. Tree Sandra, Margret Santos, Mando Benítez and colleagues, with an educational pinky from [email or web address]. Physical exam (Primary Care) Tobacco/Smoking Status: Tobacco use Status Tobacco use date assessed 03/07/24 06/29/24 14:18 Patient Tobacco Use Status Former Tobacco user 06/29/24 14:18 Tobacco use type Cigarette 06/29/24 14:18 e-Cigarette/Vaping Use Never Used 06/29/24 14:18 Thrive Assessment: Date of Thrive Assessment Date Thrive assessed 02/29/24 06/29/24 14:18 Currently or been in a relationship where the following occur: No concerns reported Telehealth Telehealth Telehealth Platform: Telephone Location of provider rendering services: practice address Location of patient: address on file Patient Identification confirmed using: Name, : Yes Telehealth method: voice only Patient verbally consented to treatment: Yes Patient verbally consented to billing insurance company: Yes Patient informed of any privacy concerns related to visit: Yes Coding Level of Care Code Admin Sign Off/No Billing Diagnoses BMI 30.0-30.9,adult Z68.30 Assessment & Plan Assessment & Plan (1) BMI 30.0-30.9,adult: Code(s): Z68.30 - Body mass index [BMI] 30.0-30.9, adult Category: Medical Plan .
== END 2024-06-29 16:40 | disposition home or self-care (01) ==
LOC: HO.HMCFM 14:20
PROVIDERS: PCP Nurse Practitioner Family; Visit Provider Nurse Practitioner Family
DX: Z68.30 Body mass index [BMI] 30.0-30.9, adult (principal)

== ENCOUNTER → 2024-06-29 14:20 | Outpatient (BNVA) | payer BC, SELFPAY | PROVIDERS: PCP Nurse Practitioner Family; Visit Provider Nurse Practitioner Family ==

== ENCOUNTER 2024-07-25 08:45 | Outpatient (REF) | payer BC, SELFPAY ==
--- NOTE | ~2024-07-25 | US_ITS ---
CLINICAL HISTORY: N20.0 - Calculus of kidney US renal with Color Doppler Comparison: None Findings: Right kidney normal size and echotexture, 11.4 cm length. No hydronephrosis or mass. Normal color flow. Equivocal caliceal stone lower pole measuring 2 mm. Left kidney normal size and echotexture, 11.1 cm length. No hydronephrosis calculus or mass. Normal color flow. Impression: 1. Equivocal nephrolithiasis right kidney. Noncontrast CT would be confirmatory. This document has been electronically signed by: Eulogio Choe MD on 07/25/2024 11:36:13
== END 2024-07-25 08:46 | disposition home or self-care (01) ==
LOC: HO.US 08:45
PROVIDERS: PCP Nurse Practitioner Family; Visit Provider Nurse Practitioner Family
DX: N20.0 Calculus of kidney (principal)
CPT/HCPCS: 76775

== ENCOUNTER → 2024-07-25 08:48 | Outpatient (BNV) | payer BC, SELFPAY | PROVIDERS: PCP Nurse Practitioner Family; Visit Provider Radiology Diagnostic Radiology | DX: N20.0 Calculus of kidney (principal) | CPT/HCPCS: 76775 ==

== ENCOUNTER 2024-08-08 09:21 | Outpatient (AMB) | payer BC, SELFPAY ==
--- NOTE | 2024-08-08 09:27 | A.OFFVIS_ITS ---
Intake Visit Reasons: 6m US(set) Intake Note: Patient presents for follow up visit for kidney stone and ultrasound results Urology Medications: VIT B-6 Blood Thinner: none Imaging completed 07/25/24 Racebook Writer Required: No Accompanied by: Self / Same As Patient Allergies No Known Allergies [No Known Allergies*] Allergy (Verified 08/08/24 09:29) HPI Comments Details: Ekta is a very pleasant 33-year-old female patient of . She has a past medical history of a liver lesion and recurrent ear infections. She presents to the office today for follow-up of her nephrolithiasis. In discussion with the patient today she reports to be doing and feeling well. She denies having had any bothersome urinary issues or concerns since her last office visit. Recent renal imaging results were reviewed 08/17 bilateral kidneys are normal in size and echotexture. No hydronephrosis or renal masses noted bilaterally. Equivocal calyceal stone lower pole measuring 2 mm per radiology report. When asked she reports compliance with vitamin B6 as prescribed. She denies urinary urgency, urinary frequency, incontinence, nocturia, hematuria, dysuria, foul smelling urine, changes to urinary stream, flank pain, fever, and or chills. She is happy with her current voiding parameters. In office urinalysis results reviewed with the patient today. We discussed at length potential causes of nephrolithiasis. We discussed importance of adequate hydration relation to nephrolithiasis as well as adding 1 oz of lemon juice to water daily. She otherwise offers no other issues or concerns at this time. [facility] Medical History Liver lesion History of recurrent ear infection Surgical History S/P abdominoplasty H/O section Family History Mother No problems noted. Father No problems noted. Maternal Grandmother No problems noted. Paternal Grandfather No problems noted. Social History Housing: Apartment Patient Tobacco Use Status: Former Tobacco user Tobacco use type: Cigarette e-Cigarette/Vaping Use: Never Used Second Hand Smoke Exposure: No service: No Current occupational status: employed Cognitive needs: No Hearing needs: Yes (mild hearing problems) Vision needs: No Review of Systems Const All systems reviewed & are unremarkable except as noted in HPI and below Physical Exam Const General: cooperative, healthy appearing, comfortable, no acute distress, well developed, alert and awake Orientation/consciousness: patient oriented x3 Limitations: no limitations HEENT Head: Yes normal to inspection, Yes normocephalic and Yes atraumatic Ears: hearing grossly normal bilaterally Eyes General: appearance normal, both eyes and all related structures Neck Neck: Yes normal visual inspection and Yes trachea midline Chest Chest palpation & inspection: normal inspection of the chest Resp Effort & Inspection: normal respiratory effort and able to speak in complete sentences Cardio Rate: regular rate GI Inspection: Yes normal to inspection General: Yes no CVA tenderness Back/Spine/Pelvis Back: no CVA tenderness Skin General skin exam: no rashes or lesions noted Neuro General: patient oriented x3 Extrem General: Yes normal to inspection Psych Appearance: grossly normal and well kempt Mental Status: mental status grossly normal Speech and movement: Normal speech and movement present and Clear speech present Affect: normal affect Attitude: cooperative Thought process: Normal thought process present Thought content: Normal thought content present Insight: Fair insight present (Psych) Judgement: Fair judgement present (Psych) Results AMB Urinalysis, Automated UA Leukoctes 0 Dexter/uL Last Edit by Karlee Hatfield MA on 08/08/24 09:39 UA Nitrite Negative Last Edit by Karlee Hatfield MA on 08/08/24 09:39 UA Urobilinogen 0.2 mg/dL Last Edit by Karlee Hatfield MA on 08/08/24 09:39 UA Protein 15 mg/dL Last Edit by Karlee Hatfield MA on 08/08/24 09:39 UA pH 6.5 Last Edit by Karlee Hatfield MA on 08/08/24 09:39 UA Blood 10 Praneeth/uL Last Edit by Karlee Hatfield MA on 08/08/24 09:39 UA Specific [place] 1.015 Last Edit by Karlee Hatfield MA on 08/08/24 09:39 UA Ketone Last Edit by Karlee Hatfield MA on 08/08/24 09:39 UA Bilirubin 0 mg/dL Last Edit by Karlee Hatfield MA on 08/08/24 09:39 UA Glucose 0 mg/dL Last Edit by Karlee Hatfield MA on 08/08/24 09:39 Results Reviewed Results Reviewed: Date of Service: 07/25/24 Procedure(s): US renal BI Findings: Right kidney normal size and echotexture, 11.4 cm length. No hydronephrosis or mass. Normal color flow. Equivocal caliceal stone lower pole measuring 2 mm. Left kidney normal size and echotexture, 11.1 cm length. No hydronephrosis calculus or mass. Normal color flow. Impression: 1. Equivocal nephrolithiasis right kidney. Noncontrast CT would be confirmatory. Assessment & Plan Assessment & Plan (1) Kidney stone on right side: Code(s): N20.0 - Calculus of kidney Category: Medical Plan In office urinalysis results reviewed with the patient today; as noted above. Recent renal imaging results with the patient today; as noted above. Patient currently denies any bothersome urinary issues or concerns. She reports be happy with current voiding parameters. Discussed, educated, and stressed the importance of adequate hydration relation to nephrolithiasis as well as overall health and well-being. Continue adding 1 oz of lemon juice to water daily. Continue vitamin B6 as discussed and prescribed. Will continue with surveillance monitoring at this time. Will obtain renal ultrasound in 6 months. Follow-up in 6 months with imaging to be completed prior; or sooner with any issues, concerns, and or questions. Orders: Orders AMB Urinalysis Automated Today Z13.9 - Encounter for screening, unspecified US renal BI 6 Months N20.0 - Calculus of kidney Patient Instructions: The patient had an opportunity to ask questions regarding the treatment plan. All questions were answered. Physical exam, labs, and imaging were discussed and reviewed in detail. As well as risks, benefits, and discussion of treatment choices. No major barriers to understanding were identified. The patient expressed understanding and agreement with the above treatment plan. The patient was made aware they should contact our office by phone for worsening of their current condition, the appearance of new symptoms, or with any questions or concerns. Compliance is encouraged with any medications and follow up testing that is ordered. It is a privilege to be allowed the opportunity to participate in? your urological care.? Again, if you have any questions or concerns If you have any questions or concerns please do not hesitate to contact me. The office is [phone]. This note is constructed using voice recognition software. While every effort has been made to ensure accuracy informatics coordinator errors may have been included. Yours sincerely, CHRISTAL Gary Coding Level of Care Code Est Pt Level 3 (82478) Diagnoses Kidney stone on right side N20.0
== END 2024-08-08 09:59 | disposition home or self-care (01) ==
LOC: HO.HUSH 09:21
PROVIDERS: PCP Nurse Practitioner Family; Visit Provider Nurse Practitioner Family
DX: N20.0 Calculus of kidney (principal); Z13.9 Encounter for screening, unspecified
CPT/HCPCS: 99213

== ENCOUNTER → 2024-08-08 09:21 | Outpatient (BNVA) | payer BC, SELFPAY | PROVIDERS: PCP Nurse Practitioner Family; Visit Provider Nurse Practitioner Family | DX: N20.0 Calculus of kidney (principal) | CPT/HCPCS: 81003 ==

== ENCOUNTER 2025-02-01 09:14 | Outpatient (REF) | payer BC, SELFPAY ==
--- NOTE | ~2025-02-01 | US_ITS ---
CLINICAL HISTORY: N20.0 - Calculus of kidney US renal with Color Doppler Comparison: US - US RENAL BI - 07/25/24 08:55 EDT US/[place]/SR - US ABDOMEN LIMITED - 01/08/24 09:25 EST Findings: Right kidney normal size and echotexture, 10.7 cm length. No hydronephrosis or mass. Normal color flow. Nonobstructing caliceal stone lower pole measuring 5 x 4 x 2 mm previously measuring 2 x 2 x 1 mm Left kidney normal size and echotexture, 11.3 in length. No hydronephrosis calculus or mass. Normal color flow. Impression: 1. Nephrolithiasis on the right This document has been electronically signed by: Eulogio Choe MD on 02/02/2025 10:17:24
== END 2025-02-01 09:15 | disposition home or self-care (01) ==
LOC: HO.US 09:14
PROVIDERS: PCP Nurse Practitioner Family; Visit Provider Nurse Practitioner Family
DX: N20.0 Calculus of kidney (principal)
CPT/HCPCS: 76775

== ENCOUNTER → 2025-02-01 09:15 | Outpatient (BNV) | payer BC, SELFPAY | PROVIDERS: PCP Nurse Practitioner Family; Visit Provider Radiology Diagnostic Radiology | DX: N20.0 Calculus of kidney (principal) | CPT/HCPCS: 76775 ==

== ENCOUNTER 2025-02-17 13:35 | Outpatient (AMB) | payer BC, SELFPAY ==
--- OUTSIDE RECORDS SUMMARY | 2025-02-17 13:39 | XMS_ITS | Clinical Summary ---
Author Organization [facility] Address [address] [place] [id number] Care Team Providers Care Shoe Patternmaker Name Role Phone Unavailable Primary Care Provider Unavailabl e Medications omega 8-nuw-mud-fish oil (FISH OIL) 300-1,000 mg cap Take by mouth. 11/29/2020 Active medroxyPROGESTER one (Depo-subQ provera 104) 104 mg/0.65 mL injection Inject 104 mg under the skin every 3 (three) months. 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 Immunizations Immunization Administration Dates Next Due COVID-19 Vaccine (Wiki-PR) Original Formulation (prior to Feb 2021) 10/16/2020,09/25/2020 Family History Medical History Relation Comments Heart disease Father Heart disease Mother Relation Status Comments Father Alive Mother Alive Social History Tobacco Use Types Packs/Day Years Used Date Smoking Tobacco: Former Cigarettes 0 Q uit: 02/23/2014 Smokeless Tobacco: Never Comments:Quit smoking: rare cigarette now Alcohol Use Standard Drinks/Week Comments Yes 0 (1 standard drink = 0.6 oz pur e alcohol) Comments Unknown Sex and Gender Information Value Date Recorded Sex Assigned at Not on file Legal Sex Female 6:15 PM EST Gender Identity Not on file Sexual Orientation Not on file Last Filed Vital Signs Vital Sign Reading Time Taken Comments Blood Pressure - - Pulse - - Temperature - - Respiratory Rate - - Oxygen Saturation - - Inhaled Oxygen Concentration - - Weight 68.5 kg (151 lb) 11/29/2020 7:54 AM EDT Height 157.5 cm (5' 2 ) 11/29/2020 7:54 AM EDT Body Mass Index 27.62 11/29/2020 7:54 AM EDT Plan of Treatment Health Maintenance Due Date Last Done Comments Blood Pressure 1989 Depression Screening 2001 Hepatitis C Screening 10/22/2007 DTaP,Tdap,and Td Vaccines (1 - Tdap) 2008 Pap Smear 2010 Cervical Cancer Screening 10/22/2019 HPV/Cotest 10/22/2019 COVID-19 Vaccine (3 - 2024-2 6 season) 2024 10/16/2020, 09/25/2020 Influenza Vaccine (#1) 2024 Meningococcal B Vaccines Aged Out No longer eligible based on patient's age to complete this topic Meningococcal Vaccines Aged Out No lo nger eligible based on patient's age to complete this topic Pneumococcal Vaccine Aged Out No long er eligible based on patient's age to complete this topic
--- OUTSIDE RECORDS SUMMARY | 2025-02-17 13:39 | XMS_ITS | Encounter Summary ---
Author Organization [facility] Address [address] [place], [place] [id number] Care Team Providers Care Signal Fitter Name Role Phone Unavailable Primary Care Provider Unavailabl e Encounter Details Date Type Department Care Team (Late st Contact Info) Description 11/29/2020 Anesthesia Event Historical Conversion [facility] Historical Encounters [address] [place] [address] Conversion ProviderOdilia MD [address] [place], [place] [id number] Social History Tobacco Use Types Packs/Day Years Used Date Smoking Tobacco: Never Assessed Comments Unknown Sex and Gender Information Value Date Recorded Sex Assigned at Not on file Legal Sex Female 6:15 PM EST Gender Identity Not on file Sexual Orientation Not on file documented as of this encounter OR Notes * Anesthesia Procedure Notes - Compa Valencia MD - 11/29/2020 2:53 PM EDT Anesthesia Post-procedure Evaluation Note Patient: Ekta Olivares Procedure: EXCISION OF EXCESSIVE SKIN AND SUBCUTANEOUS TISSUE OF ABDOMEN, INCLUDING UMBILICAL TRANSPOSITION AND FASCIAL PLICATION (N/A Abdomen) UMBILICAL HERNIA REPAIR (N/A Abdomen) PACU VITALS Vitals Value Taken Time BP 115/71 11/29/20 1415 Temp 36.5 ??C (97.7 ??F) 11/29/20 1328 Pulse 59 11/29/20 1415 Resp 20 11/29/20 1420 SpO2 98 % 11/29/20 1420 POST-PROCEDURE EVALUATION -Vital signs are in patient's normal range -Airway patent -Cardiovascular system normal -Volume status stable -Patient able to participate in the post-op evaluation -Pain control is satisfactory -Nausea and vomiting control satisfactory COMPLICATIONS No complications documented. * Anesthesia Procedure Notes - Odilia Ayon MD - 11/22/2020 2:00 PM EDT Integrated Pre-operative Note Patient: Ekta Olivares Procedure: EXCISION OF EXCESSIVE SKIN AND SUBCUTANEOUS TISSUE OF ABDOMEN, INCLUDING UMBILICAL TRANSPOSITION AND FASCIAL PLICATION (N/A Abdomen) UMBILICAL HERNIA REPAIR (N/A Abdomen) PROBLEM LIST Relevant Problems No relevant active problems HISTORY Past Surgical History: Procedure Laterality Date ??? SECTION x 3 Past Medical History: Diagnosis Date ??? Anxiety ??? COVID-19 vaccine series completed No history of anesthetic complications Cardiovascular -Cardiovascular within normal limits -No chest pain -Comments: 2 FOS without SOB Pulmonary -Pulmonary within normal limits /Renal -Renal within normal limits Hepatic -GI/hepatic within normal limits Neurological -Neurological within normal limits GI -GI within normal limits Hematological -Hematological within normal limits Endocrine -Endocrine within normal limits HEENT -HEENT within normal limits Musculoskeletal -Musculoskeletal within normal limits Psychiatric -Psychiatric not within normal limits -Anxiety Constitution -Constitution within normal limits Skin -Skin within normal lmiits Social History Tobacco Use ??? Smoking status: Former Smoker Quit date: 2015 Years since quittin.7 ??? Smokeless tobacco: Never Used ??? Tobacco comment: rare cigarette now Substance Use Topics ??? Alcohol use: Yes Comment: 1/month Social History Substance and Sexual Activity Drug Use Never Family History Problem Relation Age of Onset ??? Heart disease Mother ??? Heart disease Father Family Status Relation Name Status ??? Mother Alive ??? Father Alive VITALS Vitals: 11/22/20 1355 Weight: 152 lb (68.9 kg) Height: 1.575 m (5' 2 ) Body mass index is 27.8 kg/m??. NPO STATUS Date of Last Liquid: -- Time of Last Liquid: -- Date of Last Solid: -- Time of Last Solid: -- ALLERGIES No Known Allergies PHYSICAL EXAM Airway Mallampati score is II. TM distance is >3 FB. Mouth opening is >3 FB. Neck range of motion isfull. Constitutional She is alert and oriented (time, person, place). Mouth/Throat Anesthesia's dental exam within normal limits. Cardiovascular/Heart Anesthesia's cardiovascular exam within normal limits. Pulmonary/Lungs/Chest Anesthesia's pulmonary exam within normal limits. INTEGRATED PLAN ASA -ASA: 2 Anesthesia Plan -Plan: general. -Induction: intravenous. Other Information -ECG not reviewed -Follow no full stomach precautions. -Post-op Destination: PACU. -The patient reassessed immediately prior to procedure. Informed Consent -Anesthetic plan discussed with patient -Anesthetic plan was Consented. Attending Anesthesiologist Statement -Compa Valencia MD attested he/she was the attending anesthesiologist and reviewed the pre evaluation note. Ne Waterman RN 11/22/2020 2:00 PM documented in this encounter Plan of Treatment Not on file documented as of this encounter Visit Diagnoses Not on filedocumented in this encounter
[2025-02-17 13:41] VITALS: BP 112/76; PULSE 81; RESP 12; TEMP 36.8; O2SAT 99; BMI 27.1
--- NOTE | 2025-02-17 13:41 | A.OFFPC_ITS ---
Vital Signs 02/17/25 13:41 Height 5 ft 2 in Weight 148 lb 6 oz BMI 27.1 BP 112/76 Blood Pressure Location Lt brachial Position Sitting Respiration 12 Pulse 81 Pulse Source Pulse Oximeter Temp 98.3 F Temp Source Oral Pulse Oximetry (%) 99 Oxygen Delivery Method Room Air Intake Visit Reasons: Achy joints Intake Note: Achy joints Allergies No Known Allergies (No Known Allergies*) Allergy (Verified 02/17/25 13:49) Medication List - Last Reconciled 02/17/25 by ANGEL Gongora-BC Lactobacillus combo no.23 (Omar Probiotic) cells PO multivitamin 1 tab PO DAILY omega-3 fatty acids (Fish Oil Concentrate) 1,000 mg PO DAILY pyridoxine (vitamin B6) 100 mg PO DAILY 90 days [semaglutide 1.5 mg subcut] Tobacco use date assessed: 02/17/25 Dental Screening Dental Screen Date: 03/07/24 HPI HPI Comments History of Present Illness Details 34-year-old female with binge eating dis order, major depressive disorder, generalized anxiety disorder, family hx of skin ca, recurrent ear infections, kidney stone, liver lesion s/p abdominoplasty 3 hernia repairs; done by plastics out in [place] 2020, s/p c section Social: and lives at home with her 3 children , 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 Referral cancelled today. History of Present Illness The patient is a 34 year old female presenting with aching joints. Arthralgia: - The patient reports a couple of months of progressively worsening aching pain in her knees and elbows. - The pain is severe enough to wake her from sleep at night. - She experiences throbbing in her knees with flexion, which requires her to keep them straight for relief. - She denies any swelling or redness of the affected joints. - She reports using Tylenol, Motrin, and CBD gummies, which help take the edge off the pain. - She is concerned about a possible tick -borne illness, like Lyme disease, due to exposure to ticks from her cat. - Recent medication changes include star ting semaglutide and discontinuing Prozac. Nephrolithiasis: - The patient has a history of kidney st ones, which were previously identified on a CT scan. - A recent ultrasound showed that her ki dney stones have doubled in size. - She follows with urology for this cond ition but is not currently experiencing pain from the stones. - A finding of subchondral sclerosis was noted on her prior CT scan. History of elevated liver enzymes: - The patient has a history of intermitt ently high liver enzymes. - She associates these elevations with t imes of illness, such as ear infections or kidney stone issues, and therefore tries to limit her use of Tylenol and Motrin. Past Medical History - Nephrolithiasis - Subchondral sclerosis - History of intermittently elevated wilber er enzymes - History of ear infections Review of Systems - Musculoskeletal: Reports progressively worsening aching pain in bilateral knees and elbows over the past couple of months. - The pain is described as throbbing, is worse with flexion, and has been severe enough to cause nocturnal awakenings. - She denies any associated swelling or redness. - Dermatologic: Denies any new rashes. Physical Exam General: Well developed, well nourished, in no acute distress. Appears stated age. Head: Normocephalic, atraumatic. Eyes: Pupils are equal, round and reactive to light and accommodation. Conjunctivae are clear. Vision grossly normal. Lungs: Speaking in full sentences Musculoskeletal: Joints are nontender, without swelling, redness, or effusions. Normal exam of bilat knees and elbows. Pulses: Peripheral pulses are equal and palpable bilaterally. Extremities: No clubbing, cyanosis nor edema is noted. Psych: Mood and affect appropriate Results - Labs: She has a history of intermitten tly elevated liver enzymes. - Imaging: A past CT scan for kidney sto steve incidentally showed subchondral sclerosis. - A recent renal ultrasound showed her k idney stones have doubled in size. Medical Decision Making The patient is a 34-year-old female presenting with a two-month history of progressive, worsening arthralgia in her bilateral knees and elbows. The pain is severe enough to disturb her sleep, but her physical examination is unremarkable for any overt signs of inflammation, such as swelling, erythema, or tenderness, and she has full strength. The differential diagnosis is broad; however, given her report of pulling ticks off her cat, a tick-borne illness such as Lyme disease is a primary consideration. An inflammatory or autoimmune process is also on the differential, prompting an initial workup with an MARIN, rheumatoid factor, and inflammatory markers. The initial plan is to proceed with a laboratory evaluation. If the serological workup is negative or unrevealing, the next step in the diagnostic process will be to consider imaging, such as X-rays of the affected joints. Plan 1. Arthralgia - An initial workup for the patient's brandi int pain will be initiated with blood tests. - Lab orders will include an MARIN, a Lyme disease panel, two inflammatory markers, and a rheumatoid factor to evaluate for autoimmune, infectious, and inflammatory etiologies. - The results will be posted to the [facility] portal once all tests are completed and reviewed. - The Lyme test is a two-step process; i f the initial screen is negative, no further testing is performed, but a positive screen will reflex to a confirmatory test. - If the lab results are negative or nor mal, the next step will be to consider X-rays of the affected joints. 2. Nephrolithiasis - The patient's history of kidney stones , which have recently doubled in size per ultrasound, was noted. - As she is currently asymptomatic and u nder the care of a urologist, no further action is required for this issue at this time. Patient Instructions - Please proceed to the lab for blood wo rk to investigate the cause of your joint pain. - We will be checking for inflammation, Lyme disease, and autoimmune conditions. - Be aware that some lab results may reuben e longer than others to come back. I will review all the results together and send you a message through the patient portal with feedback. - If these labs are normal, we may need to get X-rays of your knees and elbows. - Continue to follow up with your urolog y specialist for your kidney stones. Consent The patient provided verbal consent to proceed with the planned blood work after the tests and their rationale were discussed. Patient was informed and verbally consented to the use of an ambient scribe for clinic note documentation during this visit. COUNTS INCLUDE 234 BEDS AT THE [facility] Medical History Liver lesion History of recurrent ear infection Surgical History S/P abdominoplasty H/O section Family History Mother No problems noted. Father No problems noted. Maternal Grandmother No problems noted. Paternal Grandfather No problems noted. Social History Housing: Apartment Patient Tobacco Use Status: Former Tobacco user Tobacco use type: Cigarette e-Cigarette/Vaping Use: Never Used Second Hand Smoke Exposure: No service: No Current occupational status: employed Cognitive needs: No Hearing needs: Yes (mild hearing problems) Vision needs: No Questionnaire Thrive Questionnaire Date Thrive assessed: 02/29/24 I am a: Patient What is your living situation today?: I have a steady place to live Within the past 12 months, did the food you bought not last and you didn't have the money to get more?: Never true Within the past 12 months, did you worry whether your food would run out before you got money to buy more?: Never true Do you have trouble paying for medicines?: No Do you have trouble getting transportation to medical appointments?: No Do you have trouble paying your heating and electricity bill?: No Do you have trouble taking care of your child, family member or friend?: No Do you have trouble with day-to-day activities such as bathing, preparing meals, shopping, managing finances, etc.?: No Are you currently unemployed and looking for a job?: No Are you interested in more education?: No Currently or been in a relationship where the following occur: No concerns reported THRIVE Score: 0 AUDIT C Alcohol Use Questionnaire (AUDIT-C) 1. How often do you have a drink containing alcohol?: Monthly or less 2. How many drinks containing alcohol do you have on a typical day when you are drinking?: 1 or 2 3. How often do you have six or more drinks on one occasion?: Never Total Score: 1 DEN-7 AMB Questionnaire DEN-7 Date DEN - 7 assessed: 03/07/24 Source: Developed by Drs. Tree Sandra, Margret BMando Fuentes and colleagues, with an educational pinky from [employer]. Physical exam (Primary Care) Vital Signs: Last Vital Signs Temp 98.3 F 02/17/25 13:41 Pulse 81 02/17/25 13:41 Resp 12 02/17/25 13:41 BP 112/76 02/17/25 13:41 Pulse Ox 99 02/17/25 13:41 Oxygen Delivery Method Room Air 02/17/25 13:41 BMI result Body Mass Index 27.1 Tobacco/Smoking Status: Tobacco use Status Tobacco use date assessed 02/17/25 02/17/25 13:48 Patient Tobacco Use Status Former Tobacco user 02/17/25 13:48 Tobacco use type Cigarette 02/17/25 13:48 e-Cigarette/Vaping Use Never Used 02/17/25 13:48 Thrive Assessment: Date of Thrive Assessment Date Thrive assessed 02/29/24 02/17/25 13:48 Currently or been in a relationship where the following occur: No concerns reported Coding Level of Care Code Est Pt Level 4 (57169) Add On Problem Visit Only Diagnoses Acute pain of both knees M25.561; M25.562 Chronicity: acute Pain of both elbows M25.521; M25.522 Assessment & Plan Assessment & Plan (1) Pain in both knees: Code(s): M25.561 - Pain in right knee; M25.562 - Pain in left knee Category: Medical Qualifiers: Chronicity: acute Qualified Code(s): M25.561 - Pain in right knee; M25.562 - Pain in left knee (2) Pain of both elbows: Code(s): M25.521 - Pain in right elbow; M25.522 - Pain in left elbow Category: Medical Plan . Orders: Orders Lyme IgG/IgM w/reflex to WB Today M25.521 - Pain in right elbow, M25.522 - Pain in left elbow, M25.561 - Pain in right knee, M25.562 - Pain in left knee MARIN Reflex Titer and Pattern Today M25.521 - Pain in right elbow, M25.522 - Pain in left elbow, M25.561 - Pain in right knee, M25.562 - Pain in left knee Erythrocyte Sedimentation Rate Today M25.521 - Pain in right elbow, M25.522 - Pain in left elbow, M25.561 - Pain in right knee, M25.562 - Pain in left knee C Reactive Protein Today M25.521 - Pain in right elbow, M25.522 - Pain in left elbow, M25.561 - Pain in right knee, M25.562 - Pain in left knee Rheumatoid Factor Today M25.521 - Pain in right elbow, M25.522 - Pain in left elbow, M25.561 - Pain in right knee, M25.562 - Pain in left knee
== END 2025-02-17 13:59 | disposition home or self-care (01) ==
LOC: HO.HMCFM 13:36
PROVIDERS: PCP Nurse Practitioner Family; Visit Provider Nurse Practitioner Family
DX: M25.561 Pain in right knee (principal); M25.562 Pain in left knee; M25.521 Pain in right elbow; M25.522 Pain in left elbow

== ENCOUNTER 2025-02-17 13:35 | Outpatient (REF) | payer BC, SELFPAY ==
[2025-02-18 11:48] LABS: Lyme Abs Screen <0.90 index
[2025-02-21 12:04] LABS: Anti Nuclear Antibody Screen NEGATIVE (NEGATIVE)
== END 2025-02-17 13:36 | disposition home or self-care (01) ==
LOC: HO.WFDLDS 13:35
PROVIDERS: PCP Nurse Practitioner Family; Visit Provider Nurse Practitioner Family
DX: M25.561 Pain in right knee (principal); M25.562 Pain in left knee; M25.521 Pain in right elbow; M25.522 Pain in left elbow
CPT/HCPCS: 36415; 85652; 86038; 86140; 86431; 86617; 86618

== ENCOUNTER 2025-02-20 14:22 | Outpatient (REF) | payer BC, SELFPAY ==
--- NOTE | ~2025-02-20 | XR_ITS ---
EXAMINATION: XR KNEE 4 VIEWS BILATERAL HISTORY: atraumatic pain in bilat knees COMPARISON: There are no prior studies available for comparison. FINDINGS: Eight views of the bilateral knees are submitted. Osseous mineralization is normal. There is no fracture or dislocation. There is mild narrowing of the left patellofemoral compartment. The soft tissues are unremarkable. There is no joint effusion. XR/XR Knee Osmel 4V IMPRESSION: Mild narrowing of the left patellofemoral compartment. Otherwise unremarkable examination of the bilateral knees. Electronically signed by: Tree Hope MD 02/20/2025 03:15 PM [facility]
--- NOTE | ~2025-02-20 | XR_ITS ---
EXAMINATION: XR ELBOW 3 VIEWS BILATERAL HISTORY: M25.561 - Pain COMPARISON: There are no prior studies available for comparison. FINDINGS: Six views of the bilateral elbows are submitted. Osseous mineralization is normal. There is no fracture or dislocation. The joint spaces are preserved. The soft tissues are unremarkable. No joint effusion is seen. XR/XR Elbow Osmel min 3V IMPRESSION: Unremarkable examination of the bilateral elbows. Electronically signed by: Tree Hope MD 02/20/2025 03:13 PM EST
--- OUTSIDE RECORDS SUMMARY | 2025-02-20 16:43 | XMS_ITS | Clinical Summary ---
Author Organization [facility] Address [address] [place] [id number] Care Team Providers Care Refrigeration Tech Name Role Phone Unavailable Primary Care Provider Unavailabl e Medications omega 4-swn-vbq-fish oil (FISH OIL) 300-1,000 mg cap Take by mouth. 11/29/2020 Active medroxyPROGESTER one (Depo-subQ provera 104) 104 mg/0.65 mL injection Inject 104 mg under the skin every 3 (three) months. 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 Immunizations Immunization Administration Dates Next Due COVID-19 Vaccine (Bex) Original Formulation (prior to Feb 2021) 10/16/2020,09/25/2020 [...]
--- OUTSIDE RECORDS SUMMARY | 2025-02-20 16:43 | XMS_ITS | Encounter Summary ---
Author Organization [facility] Address [address] [place] [id number] Care Team Providers Care Clipper Machine Name Role Phone Unavailable Primary Care Provider Unavailabl e Encounter Details Date Type Department Care Team (Late st Contact Info) Description 11/29/2020 Anesthesia Event Historical Conversion [facility] Historical Encounters [address] [place] [address] Conversion ProviderOdilia MD [address] [place], [place] [id number] Social History Tobacco Use Types Packs/Day Years [...]
== END 2025-02-20 14:23 ==
LOC: HO.XRAY 14:22
PROVIDERS: PCP Nurse Practitioner Family; Visit Provider Nurse Practitioner Family
DX: M25.561 Pain in right knee (principal); M25.562 Pain in left knee; M25.521 Pain in right elbow; M25.522 Pain in left elbow
CPT/HCPCS: 73080; 73564

== ENCOUNTER → 2025-02-20 14:25 | Outpatient (BNV) | payer BC, SELFPAY | PROVIDERS: PCP Nurse Practitioner Family; Visit Provider Radiology Diagnostic Radiology | DX: M17.0 Bilateral primary osteoarthritis of knee (principal); M25.521 Pain in right elbow; M25.522 Pain in left elbow | CPT/HCPCS: 73080; 73564 ==